=== PATIENT | female | born 1970 | race Caucasian/White ===

== ENCOUNTER → 2022-07-20 13:53 | Outpatient (CLI) | payer BC, SELFPAY ==
--- NOTE | 2022-07-20 13:58 | CT_ITS ---
FINAL REPORT CLINICAL HISTORY: lung cancer screening. smoker, 1 ppd x 35 years. family hx of lung cancer FINDINGS: Axial images were obtained from the lung apex to the mid abdomen by computed tomography. Low-dose protocol was utilized. CTDl vol(mGy): 2.90 DLP (mGy-cm): 100.29 FINDINGS: There is no axillary adenopathy. There is no hilar or mediastinal adenopathy. The heart size is normal. There is no pericardial or pleural effusion. Limited images of the upper abdomen are unremarkable. Lung window images demonstrate no suspicious infiltrate or nodule. IMPRESSION: No suspicious pulmonary mass or nodule. Lung RADS category 1. Recommend 12 month follow-up low-dose chest CT. Reviewed, Interpreted and Dictated by Adela Sevilla MD Transcribed by Saba Pickard Authenticated and [facility]
[2022-07-20 16:16] VITALS: PULSE 76; PULSE 80
== END ==
PROVIDERS: PCP Family Medicine; Visit Provider Internal Medicine Pulmonary Disease
DX: Z87.891 Personal history of nicotine dependence (principal); Z12.2 Encounter for screening for malignant neoplasm of respiratory organs; R06.02 Shortness of breath
CPT/HCPCS: 71271; 94060; 94618; 94640; 94727; 94729

== ENCOUNTER 2023-08-16 13:03 | Outpatient (CLI) | payer BC, SELFPAY ==
[2023-08-16 13:35] VITALS: PULSE 82
[2023-08-16] MEDS: ALBUTEROL 0.083% 2.5 MG/3 ML NEB IH (13:35)
--- NOTE | 2023-08-16 13:57 | CT_ITS ---
FINAL REPORT TECHNIQUE: Axial images were obtained from the lung apex to the mid abdomen by computed tomography. Coronal reformatted images were obtained. Supine inspiration and expiration and prone inspiration hi-resolution images were obtained and reviewed. This study was performed with techniques to keep radiation doses as low as reasonably achievable, (ALARA). Individualized dose reduction techniques using automated exposure control or adjustment of mA and/or kV according to the patient''s size were employed. CLINICAL HISTORY: Shortness of breath COMPARISON: CT low-dose 07/20/2022 FINDINGS: No mediastinal mass or adenopathy is identified. No axillary mass or adenopathy is seen.There is no pericardial or pleural effusion. Mild scarring is noted at the lung bases. There is no evidence of bronchiectasis or emphysema. There is no evidence of interstitial lung disease. No evidence of air trapping is seen. No pulmonary mass or suspicious nodule is identified. No localized pulmonary inflammatory process is noted. The chest wall is intact.Limited images of the upper abdomen are unremarkable. IMPRESSION: Mild scarring in the lung bases, otherwise unremarkable exam. Reviewed, Interpreted and Dictated by Heladio Pearson III, MD Transcribed by Gardenia Lewis Authenticated and [facility]
== END 2023-08-16 23:59 | disposition home or self-care (01) ==
LOC: RT 13:04
PROVIDERS: PCP Family Medicine; Visit Provider Internal Medicine Pulmonary Disease
DX: J84.9 Interstitial pulmonary disease, unspecified (principal); R06.09 Other forms of dyspnea; F17.200 Nicotine dependence, unspecified, uncomplicated
CPT/HCPCS: 71250; 94060; 94640; 94726; 94729; J7613

== ENCOUNTER 2023-08-29 14:16 | Outpatient (CLI) | payer BC, SELFPAY ==
[2023-08-29 14:59] LABS: Basophils # 0.1 K/mm3 (0-0.2); Basophils % 0.7 % (0.1-2.0); Eosinophils # 0.3 K/mm3 (0.0-0.4); Eosinophils % 2.5 % (0.1-12.0); Hematocrit 45.1 % (37.0-47.0); Lymphocytes # 2.3 K/mm3 (0.7-4.5); Lymphocytes % 20.6 % (10-50); Mean Corpuscular HGB Conc 33.2 g/dL (31.8-35.4); Mean Corpuscular Hemoglobin 29.3 pg (27.0-31.2); Mean Corpuscular Volume 88.3 fl (81-99); Monocytes # 0.5 K/mm3 (0.1-1.0); Monocytes % 4.7 % (1.7-9.3); Neutrophils # 7.9 K/mm3 (1.8-7.8); Neutrophils % 71.5 % (37.0-80.0); Platelet Count 381 K/mm3 (142-424); Red Blood Count 5.11 M/mm3 (4.20-5.40); Red Cell Distribution Width 15.4 % (11.5-17.5)
[2023-08-29 15:26] LABS: Uric Acid 6.6 mg/dl (2.5-6.2)
[2023-08-29 17:18] LABS: Erythrocyte Sedimentation Rate 12 mm/hr (0-30)
[2023-08-31 13:47] LABS: RA Latex Turbid. <10.0 IU/mL (<14.0)
[2023-08-31 16:18] LABS: Antinuclear Antibodies, IFA Negative (.)
[2023-09-04 08:39] LABS: D001-IgE D pteronyssinus 0.64 kU/L (Class II); D002-IgE D farinae 0.78 kU/L (Class II); E001-IgE Cat Dander 0.32 kU/L (Class I); E005-IgE Dog Dander <0.10 kU/L (Class 0); E072-IgE Mouse Urine <0.10 kU/L (Class 0); G002-IgE Bermuda Grass <0.10 kU/L (Class 0); G006-IgE Timothy Grass <0.10 kU/L (Class 0); I006-IgE Cockroach, German 2.71 kU/L (Class III); Immunoglobulin E, Total 574 IU/mL (6-495); M001-IgE Penicillium chrysogen <0.10 kU/L (Class 0); M002-IgE Cladosporium herbarum <0.10 kU/L (Class 0); M003-IgE Aspergillus fumigatus <0.10 kU/L (Class 0); M006-IgE Alternaria alternata <0.10 kU/L (Class 0); T001-IgE Maple/Box Elder <0.10 kU/L (Class 0); T003-IgE Common Silver Birch <0.10 kU/L (Class 0); T006-IgE Cedar, Mountain <0.10 kU/L (Class 0); T007-IgE Oak, White <0.10 kU/L (Class 0); T008-IgE Elm, American <0.10 kU/L (Class 0); T010-IgE Walnut <0.10 kU/L (Class 0); T011-IgE Maple Leaf Sycamore <0.10 kU/L (Class 0); T014-IgE Cottonwood <0.10 kU/L (Class 0); T015-IgE Ash, White <0.10 kU/L (Class 0); T022-IgE Pecan, Hickory <0.10 kU/L (Class 0); T070-IgE White Mulberry <0.10 kU/L (Class 0); W001-IgE Ragweed, Short <0.10 kU/L (Class 0); W011-IgE Thistle, Russian <0.10 kU/L (Class 0); W014-IgE Pigweed, Common <0.10 kU/L (Class 0); W018-IgE Sheep Sorrel <0.10 kU/L (Class 0)
[2023-10-02 15:03] LABS: Antinuclear Antibodies (ANA) Negative
== END 2023-08-29 23:59 | disposition home or self-care (01) ==
LOC: LAB 14:17
PROVIDERS: PCP Family Medicine; Visit Provider Internal Medicine Pulmonary Disease
DX: J30.9 Allergic rhinitis, unspecified (principal); J84.9 Interstitial pulmonary disease, unspecified; Z72.0 Tobacco use
CPT/HCPCS: 36415; 82785; 84550; 85025; 85651; 86003; 86038; 86225; 86235; 86431

== ENCOUNTER 2024-09-04 09:52 | Outpatient (CLI) | payer OTHER, SELFPAY ==
--- OUTSIDE RECORDS SUMMARY | 2024-08-28 10:30 | XMS_ITS | Encounter Summary ---
Author Organization [employer] ([place], [place], [place], [place]) Address [address] [place] [address] Care Team Providers Care Package Line Relief Operator Name Role Phone Rosalie Alva PA-C Primary Care Provider [phone] Rosalie Alva PA-C Unavailable [phone] Robyn Mario MD Unavailable [phone] Reason for Visit * Reason Comments Numbness Abnormal Imaging Result * Consultation (Routine) - Closed Specialty Diagnoses / Procedures Referred By Bennie beltrán Referred To Contact Neurology Diagnoses Abnormal MRI, cervical spine Paresthesia of upper and lower extremity Numbness and tingling History of carpal tunnel release New pt-BUE/BLE Paresthesia, Abnormal MRI of Cervical Spine, and a Hx of CTS Rosalie Alva PA-C [address] [place] [address] Phone: tel: fax: [facility] - [place] [address] [facility] [address] [place] [address] Phone: tel: fax: Referral ID Status Reason Start Date Expiration Date Visits Re quested Visits Authorized [id number] Closed 06/18/2024 06/18/2025 1 1 Encounter Details Date Type Department Care Team (Late st Contact Info) Description 08/28/2024 10:30 AM EDT Office Visit [facility] Neurology - [facility] [address] [place] [address] Rosalie Alva PA-C [address] [place] [address] Robyn Mario MD [address] [place] [address] Numbness and tingling of upper and lower extremities of both sides (Primary Dx); Unsteadiness on feet; Diabetic polyneuropathy associated with type 2 diabetes mellitus (HCC); Bilateral carpal tunnel syndrome; At risk for falls; Degenerative lumbar spinal stenosis; Restless legs syndrome Social History Tobacco Use Types Packs/Day Years Used Date Smoking Tobacco: Some Days Cigarettes Smokeless Tobacco: Former Tobacco Cessation:Ready to Q uit: Not Asked; Counseling Given: Not Answered Comments Unknown Sex and Gender Information Value Date Recorded Sex Assigned at Not on file Legal Sex Female 7:16 PM CDT Gender Identity Not on file Sexual Orientation Not on file documented as of this encounter Last Filed Vital Signs Vital Sign Reading Time Taken Comments Blood Pressure 160/87 08/28/2024 10:41 AM EDT Pulse 71 08/28/2024 10:41 AM EDT Temperature - - Respiratory Rate - - Oxygen Saturation - - Inhaled Oxygen Concentration - - Weight 129.7 kg (286 lb) 08/28/2024 10:41 AM EDT Height 167.6 cm (5' 6 ) 08/28/2024 10:41 AM EDT Body Mass Index 46.16 08/28/2024 10:41 AM EDT documented in this encounter Progress Notes * Robyn Mario MD - 08/28/2024 10:30 AM EDT Subjective Gracie Cordova is a 54 y.o. female Chief Complaint Patient presents with Numbness Abnormal Imaging Result HPI She is a nondiabetic. For the past couple of years she has been noticing that she is having increasing numbness in her feet and distal legs. She is getting unsteady on her feet. She was evaluated for her back and was found to have degenerative disc and facet joint disease at L4-5 and L5-S1 for which she has seen orthopedic surgery and had declined any surgical intervention. She may have leg twitches before she falls asleep. She has also been noting numbness in her hands and her doctor had requested MRI cervical spine which showed some degenerative changes as well as NCV/EMG which showed moderately severe bilateral carpal tunnel syndrome.She may drop things from her hands. Numbness in her hands wake her up from sleep at times. I have reviewed and/or updated the following: Tobacco Allergies Meds Problems Med Hx Surg Hx Fam Hx Review of Systems Eyes: Positive for photophobia and visual disturbance. Gastrointestinal: Positive for constipation, diarrhea, nausea and vomiting. Musculoskeletal: Positive for back pain and myalgias. Psychiatric/Behavioral: The patient is nervous/anxious. All other systems reviewed and are negative. Objective BP (!) 160/87 (BP Location: Right wrist, Patient Position: Sitting, Cuff Size: Adult) Pulse 71 Ht 1.676 m (5' 6 ) Wt 129.7 kg (286 lb) BMI 46.16 kg/m?? Physical Exam Vitals and nursing note reviewed. Constitutional: General: She is not in acute distress. Appearance: She is obese. HENT: Head: Normocephalic and atraumatic. Mouth/Throat: Mouth: Mucous membranes are moist. Pharynx: Oropharynx is clear. Eyes: General: Lids are normal. Extraocular Movements: Extraocular movements intact. Conjunctiva/sclera: Conjunctivae normal. Pupils: Pupils are equal, round, and reactive to light. Cardiovascular: Rate and Rhythm: Normal rate and regular rhythm. Pulses: Normal pulses. Heart sounds: Normal heart sounds. Pulmonary: Effort: Pulmonary effort is normal. Breath sounds: Normal breath sounds. Abdominal: General: Bowel sounds are normal. Palpations: Abdomen is soft. Musculoskeletal: General: No swelling. Normal range of motion. Cervical back: Normal range of motion and neck supple. Skin: General: Skin is warm and dry. Findings: No rash. Neurological: Coordination: Romberg sign positive. Deep Tendon Reflexes: Reflex Scores: Tricep reflexes are 1+ on the right side and 1+ on the left side. Bicep reflexes are 1+ on the right side and 1+ on the left side. Brachioradialis reflexes are 1+ on the right side and 1+ on the left side. Patellar reflexes are 0 on the right side and 0 on the left side. Achilles reflexes are 0 on the right side and 0 on the left side. Psychiatric: Mood and Affect: Mood normal. Speech: Speech normal. Behavior: Behavior normal. Neurological Exam Mental Status Awake, alert and oriented to person, place and time. Speech is normal. Cranial Nerves CN II: Visual carroll full to confrontation. CN III, IV, : Extraocular movements intact bilaterally. Normal lids and orbits bilaterally. Pupils equal round and reactive to light bilaterally. CN V: Facial sensation is normal. CN VII: Full and symmetric facial movement. CN VIII: Hearing is normal. CN IX, X: Palate elevates symmetrically CN XI: Shoulder shrug strength is normal. CN XII: Tongue midline without atrophy or fasciculations. Motor Normal muscle bulk throughout. No fasciculations present. Normal muscle tone. No abnormal involuntary movements. Strength is 5/5 in all four extremities except as noted. Sensory Light touch abnormality: Pinprick abnormality: Vibration abnormality: Proprioception abnormality: Decreased touch and pinprick in distal legs Decreased vibration and proprioception up to mid feet. Reflexes Right Left Brachioradialis 1+ 1+ Biceps 1+ 1+ Triceps 1+ 1+ Patellar 0 0 Achilles 0 0 Right Plantar: downgoing Left Plantar: downgoing Tinel's test positive on bilateral wrists. Coordination Right: [id number] normal.Left: [id number] normal. Gait Casual gait: Ataxic and antalgic gait. Tandem gait abnormality: Romberg is present. Data: No visits with results within 1 Month(s) from this visit. Latest known visit with results is: No results found for any previous visit. Imaging: MRI of the cervica spine without contrastl 05/27/2024: It showed multilevel degenerative disc disease as well as disc osteophyte complexes foraminal. Incidentally there were increased T2 signals within the [place] consistent with nonspecific microangiopathy. MRI of the lumbar spine without contrast 03/13/2024: Multilevel degenerative changes, especially there is a disc osteophyte complex in the L4-5 level as well as 5 S1 with associated severe left-sided canal stenosis and moderate to severe foraminal narrowing with disc osteophyte formation extending into the foramina. (MRIs were reviewed from the discs provided). NCV EMG 05/13/2024: This study was for bilateral upper extremities and was abnormal. The findings were consistent with electrodiagnostic evidence of nerve entrapment at the wrists bilaterally. EMG didnot show any denervation or myopathy. Assessment: Diagnoses and all orders for this visit: Numbness and tingling of upper and lower extremities of both sides Unsteadiness on feet Diabetic polyneuropathy associated with type 2 diabetes mellitus (HCC) Bilateral carpal tunnel syndrome At risk for falls Degenerative lumbar spinal stenosis Restless legs syndrome Her symptoms are neuropathic from diabetic polyneuropathy. Her back pain may be related with her degenerative lumbar stenosis but she has already been evaluated by the [facility] and refused surgery. She says physical therapy had been not helped in the past. Plan: Will get EMG for her lower extremities to characterize her polyneuropathy Wrist splints Fall prevention. Need to use walking cane and she has shower seat.she is advised to keep the hallways with when she has to get up in the dark. She is already taking gabapentin 800 mg 4 tablets a day supplemented with tramadol. She can continue. For her back pain she has been advised to consider shots and/or surgery by spine surgery. She continues to refuse. Return in about 3 months (around 11/28/2024) for Recheck. documented in this encounter Plan of Treatment Upcoming Encounters Date Type Department Care Team (Late st Contact Info) Description 11/25/2024 9:00 AM EDT Procedure Visit [facility] - [facility] [address] [place] [phone] Robyn Mario MD [address] [place] [address] 11/25/2024 11:45 AM EDT Office Visit [facility] [address] [place] [phone] Robyn Mario MD [address] [place] [id number] Scheduled Orders Name Type Priority Associated Diagnoses Orde r Schedule EMG W/ NCS Neurology Routine Numbness and tingling of upper and lower extremities of both sides Diabetic polyneuropathy associated with type 2 diabetes mellitus (HCC) Expected: 09/04/2024, Expires: 08/28/2025 documented as of this encounter Visit Diagnoses Diagnosis Numbness and tingling of upper and lower extremities of both sides- Primary Unsteadiness on feet Diabetic polyneuropathy associated with type 2 diabetes mellitus (HCC) Bilateral carpal tunnel syndrome Carpal tunnel syndrome At risk for falls Personal history of fall Degenerative lumbar spinal stenosis Spinal stenosis of lumbar region Restless legs syndrome Restless legs syndrome (RLS) documented in this encounter Care Teams Package Line Relief Operator Relationship Specialty Start Date End Date Rosalie Alva PA-C [address] [place] [address] PCP - General Physician Filing Clerk - Certified 06/18/24 Rosalie Alva PA-C [address] [place] [address] Referring Physician Physician Filing Clerk - Certified 06/18/24 Robyn Mario MD [address] [facility] [facility] [address] [facility] [address] [place] [phone] Neurology 08/28/24 documented as of this encounter
--- OUTSIDE RECORDS SUMMARY | 2024-09-04 09:56 | XMS_ITS | Data Portability ---
Author Organization [facility], [facility] Address [address] [place] [address] Assessment Encounter Date Assessment Date Assessment LastModified by Organization Details LastModified Time 05/11/2018 05/11/2018 48-year-old female with history of low back pain present for about 10 years. patient reports was her pain is in her low back and does not refer radiate affairs. She does report bilateral burning and tingling in her feet and nondermatomal fashion which may be a peripheral neuropathy. She has been taking gabapentin for that which has not provided significant relief. She has taken NSAIDs and muscle relaxants and neuropathic medications without significant relief this time. She denies previous injections or surgery in her low back. On examination: increased pain with extension and lateral side bending facet loading. Tenderness over paraspinal tissues. Previous records from other providers imaging Romeo, and if applicable UDS were reviewed.ORT score was reviewed and patient advised of mental health resources available, if requested. Imaging report shows: MRI of the lumbar spine shows degenerative changes most significant at L4/5 and L5/S1 where there bulges causing central canal stenosis. There is abutment of the left descending S1 nerve root left L5/S1. There is hypertrophy and facet disease consistent with lumbar spondylosis. This is present throughout most of the lumbar spine. UDS: UDS is positive for THC and TCAs. We will send this off for confirmation to help establish a pattern ofcompliance. Plan: at this time will sufficient for bilateral L2-5 medial branch blocks. If this is successfully can repeat and consider RFA [place] in the future. Based on patient's presentation I do not believe she'll be a little participate in physical therapy at this time. I do believe this may be a beneficial modality in the future if patient is able to obtain some relief from medial branch blocks or RFA. We will also set patient up with Aleppo 5/325 mg #10 pills to help with exacerbations of her pain for the next 30 days. Advised patient not to take his medication every day and to use half doses as tolerated to decrease the chances of tolerance and dependence. Patient reports that they understand this and will use the medication as sparingly as possible. [email or web address] Not available 05/11/2018 17:03:54 07/05/2024 07/05/2024 Pain History: This is a 54-year-old with chronic low back and leg pain She has chronic low back and leg pain, pain radiates down both legs to the feet. Denies incontinence or myelopathy. No prior back surgery. Evaluated by [facility] who did not recommend surgical intervention due to BMI. Primary complaint is low back pain that is worse when she bends forward. Secondary complaint is pain rating down both legs to the feet. No prior injection therapy. She is somewhat averse to injections due to anxiety. Currently using tramadol and gabapentin for pain control. Past Medical History: Fibromyalgia, metabolic syndrome, GERD, hypertension, diabetes Imaging: MRI lumbar spine personally reviewed today, [place] [facility], images uploaded in DICOM folder 02/2024 Modic 2 endplate change L4-S1 T10-11: Mild canal narrowing with disc extrusion T11-12 WNL T12-L1 WNL L1-L2 facet disease, no stenosis L2-L3 facet disease without stenosis L3-L4 disc bulge, moderate foraminal and canal narrowing L4-L5 disc osteophyte complex with extrusion, severe left-sided canal stenosis, moderate to severe foraminal narrowing L5-S1 disc osteophyte complex, grade 1 retrolisthesis, disc osteophyte contacting left S1 nerve Surgical evaluation/ history: Referred by Dr. Elizalde's office, no prior back surgery Conservative Treatments: Physical therapy in the past without benefit for low back pain, currently completing HEP from her orthopedic surgeon office which has not benefited her low back and leg pain Interventional treatment history: None Previous analgesics: Opioids Current analgesics: Tramadol gabapentin Compliance Monitoring: No UDS today Overall high risk ORT, JOSEFINA reviewed Anticoagulant/An tiplatelet Medications: None [email or web address] Not available 07/05/2024 14:57:18 Plan of Treatment Reminders Order Date Submit Date Provider Last Modified By Organization Details Last Modified Time Details Appointments None recorded. Lab drug confirmati on, urine 2018 [facility], [facility], [address] [place] [address], [place], [address], 9 17:15:40 drug screen, urine 2018 [facility], [facility] [address], [place], [address], 9 22:05:36 Referral None recorded. Procedures remote therapeuti c monitoring to monitor musculoske letal system (PROC) 2024 025 [email or web address] Not available 14:58:14 epidural steroid injection, lumbar interlamin ar (PROC) - Max David L4/5 2024 [email or web address] Not available 13:38:49 medial branch block, lumbar (PROC) 2018 [email or web address] Not available 11:35:11 Surgeries None recorded. Imaging None recorded. Medication Orders tolmetin 600 mg tablet 2024 [facility], [address], [place], [place], [id number], 15:11:25 baclofen 10 mg tablet 2024 025 [id number], [address], [id number], 14:58:31 Aleppo 5 mg-325 mg tablet 2018 019 [id number], [address] [place], [address], 9 22:05:38 Patient TargetsNo targets recorded. Patient Instructions Encounter Date Encounter Id Patient Instructions Last Modified By Organization Details Last Modified Time 05/11/2018 [id number] Opioid Risk Tool (ORT)* SVITLANA Not available 05/14/2018 07:31:19 07/05/2024 [id number] behavioral healt h screen* [email or web address] Not available 07/26/2024 07:32:26 Reason for Referral None Reported. Results Created Date Observation Date Name Description Value Unit Range Abnormal Flag Note LastModifiedBy Organization Detail LastModifiedTime 05/12/19 19 05/11/2018 drug scree n, urine THC: positi ve Not Available [place] [address], [place], [address], 05/11/2018 17:04:39 05/12/1905/11/2018 drug scree n, urine Buprenorphin e: negati ve Not Available [place] [address], [place], [address], 05/11/2018 17:04:39 05/12/1905/11/2018 drug scree n, urine TCA: positi ve Not Available [place] [address], [place], [address], 05/11/2018 17:04:39 05/12/1905/11/2018 drug scree n, urine Barbiturates : negati ve Not Available [place] [address], [place], [address], 05/11/2018 17:04:39 05/12/1905/11/2018 drug scree n, urine Benzodiazepi mauri: negati ve Not Available [place] [address], [place], [address], 05/11/2018 17:04:39 05/12/1905/11/2018 drug scree n, urine Methadone: negati ve Not Available [place] [address], [place], [address], 05/11/2018 17:04:39 05/12/1905/11/2018 drug scree n, urine Amphetamines : negati ve Not Available [place] [address], [place], [address], 05/11/2018 17:04:39 05/12/19 19 05/11/2018 drug scree n, urine Morphine/Opi ates: negati ve Not Available [place] [address], [place], [address], 05/11/2018 17:04:39 05/12/19 19 05/11/2018 drug scree n, urine Oxycodone: negati ve Not Available [place] [address], [place], [address], 05/11/2018 17:04:39 05/12/19 19 05/11/2018 drug scree n, urine MDMA: negati ve Not Available [address], [place], [address], 05/11/2018 17:04:39 05/12/19 19 05/11/2018 drug scree n, urine Cocaine: negati ve Not Available [place] [address], [place], [address], 05/11/2018 17:04:39 05/12/19 19 05/11/2018 drug scree n, urine Methamphetam ine: negati ve Not Available [place] [address], [place], [address], 05/11/2018 17:04:39 05/22/19 19 05/21/2018 drug confi rmati on, urine abnormal status abnormal Not Available [facility], [address], [address], 05/28/2018 17:15:44 05/22/19 19 05/21/2018 speci men valid ity testi ng urine creatinine 212 mg/dL 44-355 normal Presc ribed Medic ation s: [place] codon e (Hydr ocodo ne), Gabap entin (Vika penti n), Doxep in (Doxe pin) Not Available [facility], [address], [address], 05/28/2018 17:15:44 05/22/19 19 05/21/2018 ssri citalopram Not Detect ed NG/mL 75 normal Not Available [facility], [address], [address], 05/28/2018 17:15:43 05/22/19 19 05/21/2018 ssri N-desmethylc italopram Not Detect ed NG/mL 75 normal Not Available [facility], [address], [address], 05/28/2018 17:15:43 05/22/19 19 05/21/2018 ssri fluoxetine Not Detect ed NG/mL 75 normal Not Available [facility], [address], [address], 05/28/2018 17:15:43 05/22/19 19 05/21/2018 ssri norfluoxetin e Not Detect ed NG/mL 75 normal Not Available [facility], [address], [address], 05/28/2018 17:15:43 05/22/19 19 05/21/2018 ssri paroxetine Not Detect ed NG/mL 75 normal Not Available [facility], [address], [address], 05/28/2018 17:15:43 05/22/19 19 05/21/2018 ssri sertraline Not Detect ed NG/mL 75 normal Presc ribed Medic ation s: [place] codon e (Hydr ocodo ne), Gabap entin (Vika penti n), Doxep in (Doxe pin) Not Available [facility], [address], [address], 05/28/2018 17:15:43 05/22/19 19 05/21/2018 amphe tamin es D/L - amphetamine Not Detect ed NG/mL 75 normal Not Available [facility], [address], [address], 05/28/2018 17:15:43 05/22/19 19 05/21/2018 amphe tamin es D/L - methamphetam ine Not Detect ed NG/mL 75 normal Not Available [facility], [address], [address], 05/28/2018 17:15:43 05/22/19 19 05/21/2018 amphe tamin es ritalinic acid Not Detect ed NG/mL 75 normal Presc ribed Medic ation s: [place] codon e (Hydr ocodo ne), Gabap entin (Vika penti n), Doxep in (Doxe pin) Not Available [facility], [address], [address], 05/28/2018 17:15:43 05/22/19 19 05/21/2018 klever turat es butalbital Not Detect ed NG/mL 150 normal Not Available [facility], [address], [address], 05/28/2018 17:15:42 05/22/19 19 05/21/2018 klever turat es phenobarbita l Not Detect ed NG/mL 150 normal Presc ribed Medic ation s: [place] codon e (Hydr ocodo ne), Gabap entin (Vika penti n), Doxep in (Doxe pin) Not Available [facility], [address], [address], 05/28/2018 17:15:42 05/22/19 19 05/21/2018 thera peuti c drugs carisoprodol -soma Not Detect ed NG/mL 75 normal Not Available [facility], [address], [address], 05/28/2018 17:15:42 05/22/19 19 05/21/2018 thera peuti c drugs meprobamate Not Detect ed NG/mL 75 normal Presc ribed Medic ation s: [place] codon e (Hydr ocodo ne), Gabap entin (Vika penti n), Doxep in (Doxe pin) Not Available [facility], [address], [address], 05/28/2018 17:15:42 05/22/19 19 05/21/2018 benzo diaze pines 7-aminoclona zepam Not Detect ed NG/mL 60 normal Not Available [facility], [address], [address], 05/28/2018 17:15:42 05/22/19 19 05/21/2018 benzo diaze pines alprazolam Not Detect ed NG/mL 60 normal Not Available [facility], [address], [address], 05/28/2018 17:15:42 05/22/19 19 05/21/2018 benzo diaze pines alpha-hydrox yalprazolam Not Detect ed NG/mL 60 normal Not Available [facility], [address], [address], 05/28/2018 17:15:42 05/22/19 19 05/21/2018 benzo diaze pines lorazepam Not Detect ed NG/mL 60 normal Not Available [facility], [address], [address], 05/28/2018 17:15:42 05/22/19 19 05/21/2018 benzo diaze pines nordiazepam Not Detect ed NG/mL 60 normal Not Available [facility], [address], [address], 05/28/2018 17:15:42 05/22/19 19 05/21/2018 benzo diaze pines oxazepam Not Detect ed NG/mL 60 normal Not Available [facility], [address], [address], 05/28/2018 17:15:42 05/22/19 19 05/21/2018 benzo diaze pines temazepam Not Detect ed NG/mL 60 normal Pres ribed Medic ation s: [place] codon e (Hydr ocodo ne), Gabap entin (Vika penti n), Doxep in (Doxe pin) Not Available [facility], [address], [address], 05/28/2018 17:15:42 05/22/19 19 05/21/2018 vika analo gs gabapentin 2794 POSITI VE NG/mL 225 normal Not Available [facility], [address], [address], 05/28/2018 17:15:41 05/22/19 19 05/21/2018 vika analo gs pregabalin Not Detect ed NG/mL 225 normal Not Available [facility], [address], [address], 05/28/2018 17:15:41 05/22/19 19 05/21/2018 vika analo gs zaleplon Not Detect ed NG/mL 7.5 normal Not Available [facility], [address], [address], 05/28/2018 17:15:41 05/22/1905/21/2018 vika analo gs zolpidem Not Detect ed NG/mL 75 normal Pres ribed Medic ation s: [place] codon e (Hydr ocodo ne), Gabap entin (Vika penti n), Doxep in (Doxe pin) Not Available [facility], [address], [address], 05/28/2018 17:15:41 05/22/19 19 05/21/[address] antag buprenorphin e Not Detect ed NG/mL 7.5 normal Not Available [facility], [address], [address], 05/28/2018 17:15:41 05/22/19 19 05/21/2018 opiat e agoni ant norbuprenorp doyle Not Detect ed NG/mL 37.5 normal Not Available [facility], [address], [address], 05/28/2018 17:15:41 05/22/19 19 05/21/2018 [facility]iat e [facility] nalox[facility] Not Detect ed NG/mL 75 normal Not Available [facility], [address], [address], 05/28/2018 17:15:41 05/22/19 19 05/21/2018 opiat e [facility] pentazocine Not Detect ed NG/mL 22.5 normal Presc ribed Medic ation s: [place] codon e (Hydr ocodo ne), Gabap entin (Vika penti n), Doxep in (Doxe pin) Not Available [facility], [address], [address], 05/28/2018 17:15:41 05/22/19 19 05/21/2018 opiat es/op ioids codeine Not Detect ed NG/mL 75 normal Not Available [facility], [address], [address], 05/28/2018 17:15:40 05/22/19 19 05/21/2018 opiat es/op ioids fentanyl Not Detect ed NG/mL 6 normal Not Available [facility], [address], [address], 05/28/2018 17:15:40 05/22/19 19 05/21/2018 opiat es/op ioids norfentanyl Not Detect ed NG/mL 6 normal Not Available [facility], [address], [address], 05/28/2018 17:15:40 05/22/19 19 05/21/2018 opiat es/op ioids morphine Not Detect ed NG/mL 75 normal Not Available [facility], [address], [address], 05/28/2018 17:15:40 05/22/19 19 05/21/2018 opiat es/op ioids hydrocodone Not Detect ed NG/mL 75 abnormal Not Available [facility], [address], [address], 05/28/2018 17:15:40 05/22/19 19 05/21/2018 opiat es/op ioids norhydrocodo ne Not Detect ed NG/mL 75 abnormal Not Available [facility], [address], [address], 05/28/2018 17:15:40 05/22/19 19 05/21/2018 opiat es/op ioids hydromorphon e Not Detect ed NG/mL 75 abnormal Not Available [facility], [address], [address], 05/28/2018 17:15:40 05/22/19 19 05/21/2018 opiat es/op ioids oxycodone Not Detect ed NG/mL 37.5 normal Not Available [facility], [address], [address], 05/28/2018 17:15:40 05/22/19 19 05/21/2018 opiat es/op ioids noroxycodone Not Detect ed NG/mL 37.5 normal Not Available [facility], [address], [address], 05/28/2018 17:15:40 05/22/19 19 05/21/2018 opiat es/op ioids oxymorphone Not Detect ed NG/mL 75 normal Not Available [facility], [address], [address], 05/28/2018 17:15:40 05/22/19 19 05/21/2018 opiat es/op ioids meperidine Not Detect ed NG/mL 37.5 normal Not Available [facility], [address], [address], 05/28/2018 17:15:40 05/22/19 19 05/21/2018 opiat es/op ioids normeperidin e Not Detect ed NG/mL 37.5 normal Not Available [facility], [address], [address], 05/28/2018 17:15:40 05/22/19 19 05/21/2018 opiat es/op ioids methadone Not Detect ed NG/mL 75 normal Not Available [facility], [address], [address], 05/28/2018 17:15:40 05/22/19 19 05/21/2018 opiat es/op ioids methadone (EDDP) Not Detect ed NG/mL 75 normal Not Available [facility], [address], [address], 05/28/2018 17:15:40 05/22/19 19 05/21/2018 opiat es/op ioids propoxyphene Not Detect ed NG/mL 75 normal Not Available [facility], [address], [address], 05/28/2018 17:15:40 05/22/19 19 05/21/2018 opiat es/op ioids norpropoxyph porfirio Not Detect ed NG/mL 75 normal Not Available [facility], [address], [address], 05/28/2018 17:15:40 05/22/19 19 05/21/2018 opiat es/op ioids tapentadol Not Detect ed NG/mL 37.5 normal Not Available [facility], [address], [address], 05/28/2018 17:15:40 05/22/19 19 05/21/2018 opiat es/op ioids tramadol Not Detect ed NG/mL 75 normal Not Available [facility], [address], [address], 05/28/2018 17:15:40 05/22/19 19 05/21/2018 opiat es/op ioids B-bpf-agmnxu -cis-tramado l Not Detect ed NG/mL 75 normal Presc ribed Medic ation s: [place] codon e (Hydr ocodo ne), Gabap entin (Vika penti n), Doxep in (Doxe pin) Not Available [facility], [address], [address], 05/28/2018 17:15:40 05/22/19 19 05/21/2018 drug confi rmati on, urine comment: See Compon ents normal Presc ribed Medic ation s: [place] codon e (Hydr ocodo ne), Gabap entin (Vika penti n), Doxep in (Doxe pin) Not Available [facility], [address], [address], 05/28/2018 17:15:40 Result Notes None recorded. Problems Name Problem SNOMED Code Status Onset Date Resolution Date Notes Provider Name and Address Organization Details Recorded Time Fibromyalgia 038559607 Active 2018 DEDE Garcia - [facility] 9 16:27:24 Low back pain 690259214 Active 2018 DEDE Garcia - [facility] 9 16:29:05 Chronic pain 57239150 Active 2024 britta delvalle null, [facility] 11:37:41 Lumbar radiculopathy 692983150 Active 2024 britta alberts [facility] 5 11:37:41 Lumbar spondylosis 418105297 Active 2024 britta alberts [facility] 11:37:41 Vertebrogenic low back pain Active 2024 GISEL KESSLER MD [address] [place] [address], [address] [facility] 14:57:51 Problem Notes None recorded. Procedures Surgical History Date Name Laterality Status Provider Name and Address Organization Details Recorded Time Carpal Tunnel Release completed britta delvalle [facility] 07/05/2024 11:40:36 Carpal tunnel surgery completed Deebeto Gonzales [facility] 05/11/2018 16:27:59 Cholecystectomy completed Dee Gonzales [facility] 05/11/2018 16:28:15 Imaging Results None recorded. Procedure Notes None recorded. Medical Equipment None Reported. Allergies No known drug allergies Medications Name Sig Start Date Stop Date Status Note LastModified by Organization Details LastModified Time fluoxetin e 40 mg capsule TAKE 2 CAPSULE BY MOUTH EVERY DAY active Not Available Not Available No t Available cyclobenz aprine 10 mg tablet TAKE 1/2 TABLET BY MOUTH THREE TIMES DAILY NEEDED FOR MUSCLE SPASMS active Not Available Not Available No t Available Nicotrol NS 10 mg/mL nasal spray ADMINIST ER 1 SPRAY INTO EACH NOSTRIL 8 TIMES A DAY. DO NOT EXCEED 4 ML PER DAY 07/05 completed Not Available Not Available Not Available buspirone 5 mg tablet 07/05 completed Not Available Not Available Not Available metformin 500 mg tablet TAKE 1 TABLET BY MOUTH TWICE DAILY TO IMPROVE DIABETES active Not Available Not Available No t Available tolmetin 600 mg tablet Take 1 tablet 3 times a day by oral route for 30 days. 2024 active Not Available Not Available Not Avai lable gabapenti n 600 mg tablet 07/05 completed Not Available Not Available Not Available ipratropi um 0.5 mg-albute rol 3 mg (2.5 mg base)/3 mL nebulizat ion soln INHALE CONTENTS OF 1 VIAL VIA NEBULIZE R EVERY 4 TO 6 HOURS NEEDED FOR RESPIRAT ORY PROBLEMS active Not Available Not Available No t Available trazodone 50 mg tablet TAKE 1/2 TO 1 TABLET BY MOUTH AT BEDTIME NEEDED FOR SLEEP active Not Available Not Available No t Available azithromy catrachito 250 mg tablet TAKE 2 TABLETS BY MOUTH TODAY, THEN TAKE 1 TABLET DAILY FOR 4 DAYS DIRECTED 07/05 completed Not Available Not Available Not Available hydrocodo ne 5 mg-acetam inophen 325 mg tablet TAKE 1 TABLET BY MOUTH NEEDED FOR 30 DAYS. active HAS BEEN APPROVED , CASE # [id number] Not Available Not Available Not Available ondansetr on HCl 4 mg tablet active Not Available Not Available No t Available prednison e 20 mg tablet TAKE 3 TABLETS BY MOUTH DAILY FOR 5 DAYS 07/05 completed Not Available Not Available Not Available haloperid ol 1 mg tablet active Not Available Not Available Not Available acetamino phen 300 mg-codein e 30 mg tablet TAKE 1 TABLET BY MOUTH EVERY 6 HOURS NEEDED FOR PAIN 07/05 completed Not Available Not Available Not Available tramadol 50 mg tablet TAKE 2 TABLET BY MOUTH TWICE DAILY NEEDED FOR PAIN active Not Available Not Available No t Available famotidin e 20 mg tablet TAKE 1 TABLET BY MOUTH TWICE DAILY active Not Available Not Available No t Available metoclopr amide 5 mg tablet TAKE 1 TABLET BY MOUTH THREE TIMES DAILY BEFORE MEALS FOR 30 DAYS active Not Available Not Available No t Available gabapenti n 800 mg tablet TAKE 1 TABLET BY MOUTH FOUR TIMES DAILY active Not Available Not Available No t Available baclofen 10 mg tablet Take 1 tablet 3 times a day by oral route for 30 days. 2024 active Not Available Not Available Not Avai lable benzonata te 100 mg capsule TAKE 1 CAPSULE ORAL ROUTE EVERY 8 HOURS NEEDED active Not Available Not Available No t Available doxepin 100 mg capsule active Not Available Not Available Not Available dexametha sone 4 mg tablet TAKE 1 TABLET BY MOUTH TWICE A DAY 07/05 completed Not Available Not Available Not Available nicotine 21 mg/24 hr daily transderm al patch APPLY 1 PATCH TRANSDER [place] EVERY 24 HOURS active Not Available Not Available No t Available folic acid 1 mg tablet TAKE 1 TABLET BY MOUTH EVERY DAY active Not Available Not Available No t Available diclofena c sodium 50 mg tablet,de layed release 07/05 completed Not Available Not Available Not Available azelastin e 137 mcg (0.1 %) nasal spray SPRAY 2 SPRAYS INTO EACH NOSTRIL AT BEDTIME active Not Available Not Available No t Available lisinopri l 10 mg-hydroc hlorothia zide 12.5 mg tablet TAKE 1 TABLET BY MOUTH EVERY DAY FOR BLOOD PRESSURE active Not Available Not Available No t Available ondansetr on 4 mg disintegr ating tablet PLACE 1 TABLET ON THE TONGUE EVERY 4-6 HOURS NEEDED active Not Available Not Available No t Available fluoxetin e 20 mg capsule TAKE 3 CAPSULES BY MOUTH EVERY DAY 07/05 completed Not Available Not Available Not Available fluticaso ne propionat e 50 mcg/actua tion nasal spray,chinedu pension INSTILL 2 SPRAYS INTO EACH NOSTRIL EVERY DAY active Not Available Not Available No t Available amoxicill in 875 mg-potass ium clavulana te 125 mg tablet TAKE 1 TABLET BY MOUTH TWICE DAILY WITH FOOD FOR 1 WEEK FOR INFECTIO N 07/05 completed Not Available Not Available Not Available Ventolin HFA 90 mcg/actua tion aerosol inhaler INHALE 2 PUFFS BY MOUTH FOUR TIMES DAILY NEEDED FOR SHORTNES S OF BREATH OF WHEEZING active Not Available Not Available No t Available buspirone 15 mg tablet TAKE 1 TABLET BY MOUTH ONCE DAILY IN THE MORNING AND 2 TABLETS IN THE EVENING active Not Available Not Available No t Available hydroxyzi ne pamoate 25 mg capsule TAKE 1 CAPSULE BY MOUTH THREE TIMES A DAY NEEDED FOR ANXIETY active Not Available Not Available No t Available Spiriva with HandiHale r 18 mcg and inhalatio n capsules PUNCTURE 1 CAPSULE USING THE DEVICE AND INHALE BY MOUTH INTO THE LUNGS ONCE DAILY active Not Available Not Available No t Available duloxetin e 30 mg capsule,d elayed release 07/05 completed Not Available Not Available Not Available duloxetin e 60 mg capsule,d elayed release active Not Available Not Available Not Available Vitamin D3 50 mcg (2,000 unit) tablet TAKE 1 TABLET BY MOUTH EVERY DAY active Not Available Not Available No t Available Dulera 200 mcg-5 mcg/actua tion HFA aerosol inhaler INHALE 2 PUFFS BY MOUTH INTO THE LUNGS TWICE DAILY active Not Available Not Available No t Available SmoothLax 17 gram/dose oral powder MIX AND DRINK 17 GRAMS BY MOUTH EVERY DAY DIRECTED active Not Available Not Available No t Available Rexulti 3 mg tablet TAKE 1 TABLET BY MOUTH DAILY active Not Available Not Available No t Available Rexulti 2 mg tablet TAKE 1 TABLET BY MOUTH EVERY DAY active Not Available Not Available No t Available Ozempic 0.25 mg or 0.5 mg (2 mg/3 mL) subcutane ous pen injector ADMINIST ER 0.5 MG UNDER THE SKIN EVERY WEEK active Not Available Not Available No t Available Vitals Date Recorded Body height Body mass index (BMI) Body weight Oxygen saturation Oxygen saturation in Arterial blood by Pulse oximetry Heart rate Systolic And Diastolic Provider Name and Address Organization Details Last Updated DateTime 9 167.64 cm 51.3 kg/m2 748567. 37 g 97 % 97 % 70 /min 150/96 mm[Hg] Dee Gonzales [facility] 9 16:34:36 Date Recorded Body height Body mass index (BMI) Body weight Heart rate Oxygen saturation Oxygen saturation in Arterial blood by Pulse oximetry Systolic And Diastolic Provider Name and Address Organization Details Last Updated DateTime 5 165.1 cm 52.4 kg/m2 840657. 6 g 75 /min 97 % 97 % 132/96 mm[Hg] Carrie lopez [facility] 5 12:13:59 Date Recorded Pain severity - 0-10 verbal numeric rating [Score] - Reported Provider Name and Address Organization Details Last Updated DateTime 07/05/2024 Adam delvalle [facility] 07/05/2024 11:38:40 Social History Question Answer Notes LastModified by Organizat ion Details LastModified Time Tobacco Smoking Status Current Every Day Smoker Dee alberts [facility] 05/11/2018 16:27:32 Do You Have An Advance Directive? No [email or web address] Information not available 07/05/2024 What Is Your Level Of Caffeine Consumption? Heavy [email or web address] Information not available 07/05/2024 How Much Tobacco Do You Chew? None [email or web address] Information not available 07/05/2024 Are You Deaf Or Do You Have Serious Difficulty Hearing? No [email or web address] Information not available 07/05/2024 What Type Of Diet Are You Following? REGULAR [email or web address] Information not available 07/05/2024 Which Illicit Or Recreational Drugs Have You Used? Some Marijuana [email or web address] Information not available 07/05/2024 What Is The Highest Grade Or Level Of School You Have Completed Or The Highest Degree You Have Received? [id number] [email or web address] Information not available 07/05/2024 Hard Of Hearing Or Deaf In One Or Both Ears? No Information not available 07/05/2024 Marital Status Domestic Partner [email or web address] Information not available 07/05/2024 Do You Have A Medical Power Of Consulting Systems Engineer? No Information not available 07/05/2024 What Was The Date Of Your Most Recent Tobacco Screening? 05/11/2018 Information not available 09/05/2018 What Is Your Relationship Status? Single [email or web address] Information not available 07/05/2024 At What Age Did You Start Smoking Tobacco? 17 [email or web address] Information not available 07/05/2024 How Much Tobacco Do You Smoke? 1 PPD [email or web address] Information not available 07/05/2024 General Stress Level High [email or web address] Information not available 07/05/2024 How Many Years Have You Smoked Tobacco? 30 Information not available 07/05/2024 Do You Have Difficulty Walking Or Climbing Stairs? Yes [email or web address] Information not available 07/05/2024 Sex: Unknown Functional Status Question Answer Note LastModified by Organizat ion Details LastModified Time What is your level of alcohol consumption? None [email or web address] Information not available 05/11/2018 Are you currently employed? No [email or web address] Information not available 07/05/2024 Are you able to walk? YESWOREST [email or web address] Information not available 07/05/2024 Do you have difficulty doing errands alone? Yes [email or web address] Information not available 07/05/2024 What is your occupation? unemployed [email or web address] Information not available 05/11/2018 Do you have difficulty dressing or bathing? Yes Information not available 07/05/2024 What is your exercise level? None [email or web address] Information not available 07/05/2024 Mental Status Question Answer Note LastModified by Organization D etails LastModified Time Do you have difficulty concentrating, remembering or making decisions? Yes becky Information no t available 07/05/2024 Family History Relationship Description Onset Age of this Age Resolved Age Notes LastModified by Organization Details LastModified Time Mother Fibromyalgia mariam Not av ailable 05/11/2018 16:22:37 Medical History Condition Response Bipolar Disease N Coronary Artery Disease N Gout N Seizure Disorder N Atrial Fibrillation N Thyroid Disease N Head Trauma/Injury N Hernia N Depression N COPD N Anxiety Disorder N Acid Reflux (GERD) N Cancer N Stroke N Skin Disorder N High Cholesterol N Liver Disease N Rheumatoid Arthritis N Headaches N Fibromyalgia Y Kidney Disease N Autoimmune Disease N Osteoarthritis N Neurosurgery N DVT N Peptic Ulcer Disease N Anemia N Heart Attack ([place]) N Diabetes N Cardiomyopathy N Bleeding Disorder N CHF N AIDS/HIV N Inflammatory Bowel Disease N Dementia N Asthma N Substance Abuse N Sleep Apnea N Hepatitis N Heart Disease N Pulmonary Embolism N Chronic Low Back Pain Y Hypertension Y Osteoporosis N Gynecological HistoryNo gynecological history recorded. Obstetrics History GPAL:G 0 P 0 0 0 0 Past Encounters Encounter ID Performer Location Encounter Start Date Encounter Closed Date Diagnosis/Indication Diagnosis SNOMED-CT Code Diagnosis ICD10 Code Diagnosis Note [id number] Dharmesh Carrillo DO [address] ,[facility] [address] [place] [address] 05/11/2018 15:52:57 05/11/2018 17:04:32 Degeneration of lumbar intervertebral disc 78809067 M51.36 Lumbar spondylosis 32452 0009 M47.816 Low back pain 522425037 M54.5 Long-term drug therapy 444682933 Z79.899 ORT and PHQ-9 testing was completed electronic ally by the patient to evaluate the patient's psychosoci al health to better determine baseline risk as we consider initiating opioid medication s. The patient's ORT score of 3 indicates (low) risk potential for medication misuse. The patients PHQ-9 of 24 indicates (severe) depression . The patients PSEQ score being 14 represents the patient has (less sustainabl e gains) if opioid medication is considered . Baseline results. Will be taken into considerat ion if treatment with opioid medication is initiated in the future. Medication monitoring 39 5552278 Z79.691 [id number] GISEL KESSLER MD [place] [address] [place] [address] 07/05/2024 10:16:46 07/05/2024 12:28:12 Lumbar radiculopathy 520561809 M54.16 Presentati on consistent with lumbar radiculopa thy with superimpos ed anterior, axial back pain. Recommend baclofen, tolmetin, epidural steroid injection with sedation. She has severe anxiety and I think it would be unsafe to do this without sedation. Chronic pain 62800719 G8 9.29 Vertebroge dallin low back pain 4758858632 14093221 M54.51 She also has anterior, axial back pain with Modic endplate change. Consider Intracept when she has her weight down to 275 pounds. Health Concerns Section Related Observation LastModified by Organization Detai ls LastModified Time None Recorded Concern Status LastModified by Organization Details LastModified Time None Recorded Advance Directives Directive N: Payers Insurance Date Sequence Insurance Name Policy Number Policy Dai Covered Member ID Dai Member ID Guarantor Name 05/30/2024 1 [place] [id number] Gracie Cordova [id number] Gracie Cordova 06/25/2024 1 [facility] [facility] (MEDICAID REPLACEMENT - HMO) Gracie Cordova [id number] Gracie Cordova 08/02/2024 1 [employer] [facility] (MEDICAID HMO) Gracie Cordova [id number] Gracie Cordova Notes Date Note Type Note Provider Name and Address Organization Details Recorded Time 05/12/19 19 text/ht ml Low back painReported by PatientHPIFor associated symptoms, patient reportsnumbnessandtinglingbut reportsno weakness,no swelling,no popping/clicking,no bowel incontinence,no urinary retention,no urinary incontinence, andno perineal paresthesia/anesthesia. For location, patient reportsbuttock: __. For duration, patient reportsvaries throughout the day. For context, patient reportsstarted without cause. For quality, patient reportsaching. For pain intensity, patient reportsmoderate,current pain level: 10, andworst pain level: 11/22. For alleviating factors, patient reportsrest. For aggravating factors, patient reportsupstairsanddownstairs(phy sical activity). For prior imaging, patient reportsmri(patient has reports today). For lumbar surgery, patient reportsnone. For physical therapy, patient reportscompleted all recommended pt visits,complete more than 6 weeksweeks,dates: (2013), andresponse to therapy: no improvement in pain. For medications history, patient reportsnsaids: (diclofenac),muscle relaxants: (flexeril), andneuropathics: (gabapentin). DEDE Diaz - [facility] 05/18/2018 13:49:17 07/06/19 25 text/ht ml Low back painReported by PatientHPIFor associated symptoms, patient reportsweaknessandnumbness. 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 For onset, patient reportsdate of onset: (10 years). For location, patient reportsparaspinal: bilateralandradiating down the bilateral lower extremity to the foot. For duration, patient reportsvaries throughout the day. For context, patient reportsfallandwork injury. For quality, patient reportsaching,burning,stabbing, andworsening. For pain intensity, patient reportssevere,current pain level: 10/10,average pain level: 10/10, andworst pain level: 10/10. For alleviating factors, patient reportsnothing helps. For aggravating factors, patient reportssittingandwalking. For prior imaging, patient reportsx-ray (. lumbar)andmri (lumbar. [facility]. 03/13/24cervical. [facility]. 05/27/24). For lumbar surgery, patient reportsnone. For physical therapy, patient reportscompleted all recommended pt visits,facility: ([facility]),complete more than 6weeks,dates: (03/09/24-06/24/24),response to therapy: no improvement in pain/symptoms,currently participating in home exercise program(hep): not effective, anddate started hep: 05/14/24 days per week: 3(patient has been active in hep for low back pain for). For current analgesics, patient reportshydrocodone/apap effective,oxycodone effective, andgabapentin effective. For medications history, patient reportsopioid pain medications:. For prior pain management, patient reportsyes: (several years). GISEL KESSLER MD [address] [place] [address], [phone] 07/05/2024 14:58:19 OBGyn Episode No OBEpisode recorded.
--- OUTSIDE RECORDS SUMMARY | 2024-09-04 09:56 | XMS_ITS | Clinical Summary ---
Author Organization [employer] ([place], [place], [place], [place]) Address [address] [place] [address] Care Team Providers Care Lead Installer Name Role Phone Rosalie Alva PA-C Primary Care Provider [phone] Rosalie Alva PA-C Unavailable [phone] Robyn Mario MD Unavailable [phone] Allergies Active Allergy Reactions Criticality Noted Date Comments Codeine 08/28/2024 Medications gabapentin (NEURONTIN) 800 MG tablet Take 1 tablet (800 mg total) by mouth 4 (four) times daily. Max Daily Amount: 3,200 mg 5 Active hydrOXYzine pamoate (VISTARIL) 25 MG capsule TAKE 1 CAPSULE BY MOUTH THREE TIMES A DAY NEEDED FOR ANXIETY Active folic acid (FOLVITE) 1 MG tablet Take 1 tablet (1,000 mcg total) by mouth daily. Active famotidine (PEPCID) 20 MG tablet Take 1 tablet (20 mg total) by mouth 2 (two) times daily. Active busPIRone (BUSPAR) 15 MG tablet TAKE 1 TABLET BY MOUTH ONCE DAILY IN THE MORNING AND 2 TABLETS IN THE EVENING Active cyclobenzaprine (FLEXERIL) 10 MG tablet Take by mouth. Activ e metoclopramide (REGLAN) 5 MG tablet TAKE 1 TABLET BY MOUTH THREE TIMES DAILY BEFORE MEALS FOR 30 DAYS Active traMADoL (ULTRAM) 50 mg tablet TAKE 2 TABLET BY MOUTH TWICE DAILY NEEDED FOR PAIN 5 Active lisinopriL-hydroCH LOROthiazide (ZESTORETIC, PRINZIDE) 10-12.5 mg per tablet Take 1 tablet by mouth daily. Active FLUoxetine (PROzac) 40 MG capsule Take 2 capsules (80 mg total) by mouth daily. Active traZODone (DESYREL) 50 MG tablet Take 0.5-1 tablets (25-50 mg total) by mouth every night as needed. Active metFORMIN (GLUCOPHAGE) 500 MG tablet TAKE 1 TABLET BY MOUTH TWICE DAILY TO IMPROVE DIABETES Active Rexulti 3 mg tab tablet Take 1 tablet (3 mg total) by mouth daily. Active Ozempic 0.25 mg or 0.5 mg (2 mg/3 mL) pnij ADMINISTER 0.5 MG UNDER THE SKIN EVERY WEEK Active cane deviIndications:Nu mbness and tingling of upper and lower extremities of both sides,Diabetic polyneuropathy associated with type 2 diabetes mellitus (HCC),At risk for falls To prevent falls while ambulating. 1 each 5 Active Active Problems No known active problems Encounters Date Type Department Care Team Description 08/28/2024 10:30 AM EDT Office Visit [facility] Neurology [address] [facility] [address] [place] [address] Rosalie Alva PA-C Bukhari, Amjad, MD Numbness and tingling of upper and lower extremities of both sides (Primary Dx); Unsteadiness on feet; Diabetic polyneuropathy associated with type 2 diabetes mellitus (HCC); Bilateral carpal tunnel syndrome; At risk for falls; Degenerative lumbar spinal stenosis; Restless legs syndrome 08/28/2024 Travel 06/18/2024 Outside Orders [facility] Neurology [address] [place] [address] Rosalie Alva PA-C Abnormal MRI, cervical spine (Primary Dx); Paresthesia of upper and lower extremity; Numbness and tingling; History of carpal tunnel release from Last 3 Months Social History Tobacco Use Types Packs/Day Years Used Date Smoking Tobacco: Some Days Cigarettes Smokeless Tobacco: Former Tobacco Cessation:Ready to Q uit: Not Asked; Counseling Given: Not Answered Comments Unknown Sex and Gender Information Value Date Recorded Sex Assigned at Not on file Legal Sex Female 7:16 PM CDT Gender Identity Not on file Sexual Orientation Not on file Last Filed Vital Signs Vital Sign Reading [...] Mass Index 46.16 08/28/2024 10:41 AM EDT Plan of Treatment Upcoming Encounters Date Type Department Care Team (Late st Contact Info) Description 11/25/2024 9:00 AM EDT Procedure Visit [facility] Neurology - [facility] [address] [place] [address] Robyn Mario MD [address] [place] [address] 11/25/2024 11:45 AM EDT Office [facility] [address] [place] [address] Robyn Mario MD [address] [facility] [address] [place] [address] Health Maintenance Due Date Last Done Comments CT Colonography 1971 Colonoscopy 1971 Colorectal Cancer Screening 1971 Diabetic Kidney Health Evaluation (KED) 1971 FOBT/FIT 1971 Fit-DNA (Cologuard) 1971 Sigmoidoscopy 1971 Diabetic Eye Exam 05/02/1981 Depression Screening (12+) 1983 Tobacco Cessation Counseling and Screening (12+) 05/02 HIV Screening 05/02/1986 Hepatitis C Screening 05/02/1989 Pneumococcal 50+ years (1 of 2 - PCV) 05/02/1990 Breast Cancer Screening 2011 Lipid Panel 05/02/2016 Shingles Vaccine (Zoster) (1 of 2) 05/02/2021 COVID-19 VACCINE (2 - 2023- season) 2023 Hemoglobin A1C 08/28/2024 Influenza Vaccine (#1) 2024 Pap Smear 07/01/2025 07/01/2022 DTAP/TDAP/TD VACCINES (2 - Td or Tdap) 02/16/2028 Insurance [employer] [facility] Care Teams Lead Installer Relationship Specialty Start Date End Date Rosalie Alva PA-C [address] [place] [address] PCP - General Physician Editorial Specialist - Certified 06/18/24 Rosalie Alva PA-C [address] [place] [address] Referring Physician Physician Editorial Specialist - Certified 06/18/24 Robyn Mario MD [address] [address] Neurology 08/28/24
--- OUTSIDE RECORDS SUMMARY | 2024-09-04 09:56 | XMS_ITS | Referral Summary ---
Author Organization [employer] ([place], [place], [place], [place]) Address [address] [place] [address] Care Team Providers Care Contact Center Professional Name Role Phone Rosalie Alva PA-C Primary Care Provider [phone] Rosalie Alva PA-C Unavailable [phone] Robyn Mario MD Unavailable [phone] Encounters Date Type Department Care Team Description 08/28/2024 Travel 08/28/2024 10:30 AM EDT Office Visit [facility] Neurology [address] [place] [address] Rosalie Alva PA-C Bukhari, Amjad, MD Numbness and tingling of upper and lower extremities of both sides (Primary Dx); Unsteadiness on feet; Diabetic polyneuropathy associated with type 2 diabetes mellitus (HCC); Bilateral carpal tunnel syndrome; At risk for falls; Degenerative lumbar spinal stenosis; Restless legs syndrome 06/18/2024 Outside Orders [facility] Neurology [facility] [address] [place] [address] Rosalie Alva PA-C Abnormal MRI, cervical spine (Primary Dx); Paresthesia of upper and lower extremity; Numbness and tingling; History of carpal tunnel release from Last 3 Months Allergies Active Allergy Reactions Criticality Noted Date [...] Active Active Problems No known active problems Social History Tobacco Use Types Packs/Day Years [...] Description 11/25/2024 9:00 AM EDT Procedure Visit [facility] Neurology - [facility] [address] [place] [address] Robyn Mario MD [address] [facility] [address] [place] [address] 11/25/2024 11:45 AM EDT Office Visit [facility] Neurology - [facility] [address] [place] [address] Robyn Mario MD [address] [place] [address] Insurance [employer]NA [facility] Care Teams Contact Center Professional Relationship Specialty Start Date End Date Rosalie Alva PA-C [address] [place] [address] PCP - General Physician Passenger Service Supervisor - Certified 06/18/24 Rosalie Alva PA-C [address] [place] [address] Referring Physician Physician Passenger Service Supervisor - Certified 06/18/24 Robyn Mario MD [address] [facility] [address] [address] Neurology 08/28/24
--- OUTSIDE RECORDS SUMMARY | 2024-09-04 09:56 | XMS_ITS | Data Portability ---
Author Organization [facility] & KEVIN Ray ADMIN Address [address] [place] [id number] Care Team Providers Care Pension Administrator Name Role Phone CATHY CHE Laminating Machine Tender CHRISTOPHE SEVILLA Primary Care Provider [phone] Assessment No assessment recorded. Plan of Treatment Reminders Order Date Submit Date Provider Last Modified By Organization Details Last Modified Time Details Appointments OV EST 15 2024 11:30A M Cathy Che NP Not available Not available Not available Lab None recorded. Referral None recorded. Procedures None recorded. Surgeries None recorded. Imaging None recorded. Medication Orders Miralax 17 gram/dose oral powder 2024 025 [id number], [address] [place], [address], 03/20/2024 13:49:43 Reglan 5 mg tablet 2024 025 [facility], [address] [place], [address], 03/20/2024 13:49:43 ondansetr on 4 mg disintegr ating tablet 2024 025 [facility], [address] [place], [address], 03/20/2024 13:49:44 Zofran 4 mg tablet 2023 024 [facility], [address] [place], [address], 05/10/2023 15:34:54 Reglan 5 mg tablet 2023 025 [facility] [address] [place], [address], 03/20/2024 13:24:29 Zofran 4 mg tablet 2022 023 [facility], [address] [place], [address], 09/07/2022 11:16:11 Reglan 5 mg tablet 2022 023 [facility] [address] [place], [address], 03/20/2024 13:24:26 Zofran 4 mg tablet 2022 023 [facility] [address] [place], [address], 03/09/2022 15:10:22 Reglan 5 mg tablet 2022 023 [facility] [address] [place], [address], 03/20/2024 13:24:26 Patient TargetsNo targets recorded. Patient InstructionsNo instructions recorded. Reason for Referral None Reported. Problems Name Problem SNOMED Code Status Onset Date Resolution Date Notes Provider Name and Address Organization Details Recorded Time Depressive disorder 93175939 Active 2022 Armida Perkins null, [place] [facility] & [place] 3 14:11:38 Hypertensive disorder 30114024 Active 2022 Armida Perkins null, [place] [facility] [place] & [place] 3 14:11:43 Chronic back pain 280220388 Active 2022 Armida Perkins null, [place] [facility] & [place] 3 14:11:51 Restless legs 46507620 Active 2022 Armida Perkins null, [place] [facility] & [place] 3 14:11:58 Lumbar spondylosis 129378224 Active 2022 Armida alberts, [place] - [facility] - [place] & [place] 3 14:12:17 Gastroparesis syndrome 838428689 Active 2022 Armida Perkins null, [place] [facility] & [place] 3 14:12:25 Morbid obesity 783071402 Active 2022 Armidadunia alberts, [place] [facility] & [place] 3 14:12:36 Diarrhea 17156353 Active 2022 Cathy Che NP [address], [address], [place], [address], [place] - [facility] & [place] 3 15:04:47 Irritable bowel syndrome 79592259 Active 2024 Cathy Che NP [address], [address], [place], [address], [place] - [facility] - [place] & [place] 5 13:48:41 Problem Notes None recorded. Procedures Surgical History Date Name Laterality Status Provider Name and Address Organization Details Recorded Time 05/14/19 EMG/ Nerve Conduction Study completed Oliver Jacobsen M.D [address], [address], [place], [address], [place] [facility] [place] & [place] 05/25/2024 20:13:41 12/28/19 19 EGD/Endoscopy completed Armida Perkins [facility] - [facility] - [place] & [place] 03/09/2022 14:17:22 12/28/19 19 Colonoscopy completed Armida Perkins [facility] - [facility] - [place] & [place] 03/09/2022 14:17:32 section completed Armida Perkins [facility] - [facility] - [place] & [place] 03/09/2022 14:15:10 Carpal tunnel surgery completed Armida Perkins [facility] - [facility] - [place] & [place] 03/09/2022 14:16:15 Imaging Results None recorded. Procedure Notes None recorded. Medical Equipment None Reported. Allergies No known drug allergies Medications Name Sig Start Date Stop Date Status Note LastModified by Organization Details LastModified Time fluoxetine 40 mg capsule TAKE 2 CAPSULES BY MOUTH ONCE A DAY active Not Available Not Available No t Available cyclobenzap rine 10 mg tablet TAKE 1/2 TABLET BY MOUTH THREE TIMES DAILY NEEDED FOR MUSCLE SPASMS active Not Available Not Available No t Available Nicotrol NS 10 mg/mL nasal spray ADMINISTE R 1 SPRAY INTO EACH NOSTRIL 8 TIMES A DAY. DO NOT EXCEED 4 ML PER DAY active Not Available Not Available No t Available metformin 500 mg tablet TAKE 1 TABLET BY MOUTH TWICE DAILY TO IMPROVE DIABETES active Not Available Not Available No t Available nystatin 100,000 unit/mL oral suspension SWISH AND SWALLOW 1 TEASPOONF UL (5ML) 4 TIMES A DAY NEEDED FOR SORE MOUTH AND THROAT 03/20 completed Not Available Not Available Not Available ipratropium 0.5 mg-albutero l 3 mg (2.5 mg base)/3 mL nebulizatio n soln INHALE 1 VIAL VIA NEBULIZER 4 TIMES A DAY NEEDED active Not Available Not Available No t Available trazodone 50 mg tablet TAKE 1/2-1 ORAL TABLET AT BEDTIME NEEDED FOR SLEEP. active Not Available Not Available No t Available cetirizine 10 mg tablet TAKE 1 TABLET BY MOUTH EVERY DAY 03/20 completed Not Available Not Available Not Available azithromyci n 250 mg tablet TAKE 2 TABLETS BY MOUTH TODAY, THEN TAKE 1 TABLET DAILY FOR 4 DAYS DIRECTED 03/20 completed Not Available Not Available Not Available nystatin 100,000 unit/gram topical ointment APPLY 1 APPLICATI ON TO THE SKIN 3 TIMES A DAY 05/13 completed Not Available Not Available Not Available hydrocodone 5 mg-acetamin ophen 325 mg tablet TAKE 1 TABLET BY MOUTH EVERY 8 HOURS 05/13 completed Not Available Not Available Not Available ondansetron HCl 4 mg tablet TAKE 1 TABLET BY MOUTH EVERY 4 TO 6 HOURS NEEDED FOR 10 DAYS active Not Available Not Available No t Available prednisone 20 mg tablet TAKE 3 TABLETS BY MOUTH DAILY FOR 5 DAYS 05/13 completed Not Available Not Available Not Available acetaminoph en 300 mg-codeine 30 mg tablet TAKE 1 TABLET BY MOUTH EVERY 6 HOURS NEEDED FOR PAIN 03/20 completed Not Available Not Available Not Available tramadol 50 mg tablet TAKE 2 TABLET BY MOUTH TWICE DAILY NEEDED FOR SEVERE PAIN active Not Available Not Available No t Available famotidine 20 mg tablet TAKE 1 TABLET BY MOUTH TWICE A DAY active Not Available Not Available No t Available metoclopram sarah 5 mg tablet TAKE 1 TABLET BY MOUTH THREE TIMES DAILY BEFORE MEALS FOR 30 DAYS active Not Available Not Available No t Available gabapentin 800 mg tablet TAKE 1 TABLET BY MOUTH FOUR TIMES A DAY active Not Available Not Available No t Available benzonatate 100 mg capsule TAKE 1 CAPSULE ORAL ROUTE EVERY 8 HOURS NEEDED active Not Available Not Available No t Available neomycin-po lymyxin-dex ameth 3.5 mg/mL-10,00 0 unit/mL-0.1 % eye drops INSTILL 1 DROP IN BOTH EYES 3 TIMES DAILY 03/09 completed Not Available Not Available Not Available dexamethaso ne 4 mg tablet TAKE 1 TABLET BY MOUTH TWICE A DAY 05/13 completed Not Available Not Available Not Available nicotine 21 mg/24 hr daily transdermal patch APPLY 1 PATCH TRANSDERM ALLY EVERY 24 HOURS active Not Available Not Available No t Available folic acid 1 mg tablet TAKE 1 TABLET BY MOUTH EVERY DAY active Not Available Not Available No t Available azelastine 137 mcg (0.1 %) nasal spray SPRAY 2 SPRAYS INTO EACH NOSTRIL AT BEDTIME active Not Available Not Available No t Available lisinopril 10 mg-hydrochl orothiazide 12.5 mg tablet TAKE 1 TABLET BY MOUTH EVERY DAY TO IMPROVE BLOOD PRESSURE active Not Available Not Available No t Available levofloxaci n 500 mg tablet TAKE 1 TABLET BY MOUTH ONCE DAILY FOR 7 DAYS FOR INFECTION 03/20 completed Not Available Not Available Not Available methylpredn isolone 4 mg tablets in a dose pack TAKE DIRECTED ON PACKAGE 09/07 completed Not Available Not Available Not Available ondansetron 4 mg disintegrat ing tablet PLACE 1 TABLET ON THE TONGUE EVERY 4-6 HOURS NEEDED active Not Available Not Available No t Available fluoxetine 20 mg capsule TAKE 3 CAPSULES BY MOUTH EVERY DAY active Not Available Not Available No t Available fluticasone propionate 50 mcg/actuati on nasal spray,suspe nsion INSTILL 2 SPRAYS INTO EACH NOSTRIL EVERY DAY active Not Available Not Available No t Available metoclopram sarah 10 mg tablet TAKE 1 TABLET BY MOUTH 3 TIMES A DAY BEFORE MEALS 03/20 completed Not Available Not Available Not Available amoxicillin 875 mg-potassiu m clavulanate 125 mg tablet TAKE 1 TABLET BY MOUTH TWICE DAILY WITH FOOD FOR 1 WEEK FOR INFECTION 05/13 completed Not Available Not Available Not Available Ventolin HFA 90 mcg/actuati on aerosol inhaler INHALE 2 PUFFS BY MOUTH FOUR TIMES A DAY NEEDED FOR SHORTNESS OF BREATH OR WHEEZING FOR 90 DAYS active Not Available Not Available No t Available buspirone 15 mg tablet TAKE 1 TABLET BY MOUTH IN THE MORNING AND 2 TABLETS BY MOUTH IN THE EVENING. active Not Available Not Available No t Available hydroxyzine pamoate 25 mg capsule TAKE 1 CAPSULE BY MOUTH THREE TIMES A DAY NEEDED FOR ANXIETY active Not Available Not Available No t Available Spiriva with HandiHaler 18 mcg and inhalation capsules PUNCTURE 1 CAPSULE USING THE DEVICE AND INHALE BY MOUTH INTO THE LUNGS ONCE DAILY active Not Available Not Available No t Available Vitamin D3 50 mcg (2,000 unit) tablet TAKE 1 TABLET BY MOUTH EVERY DAY active Not Available Not Available No t Available Dulera 200 mcg-5 mcg/actuati on HFA aerosol inhaler INHALE 2 PUFFS INTO THE LUNGS TWICE A DAY active Not Available Not Available No t Available Dulera 100 mcg-5 mcg/actuati on HFA aerosol inhaler INHALE 2 PUFFS TWICE A DAY 03/20 completed Not Available Not Available Not Available SmoothLax 17 gram/dose oral powder MIX AND DRINK 17 GRAMS BY MOUTH EVERY DAY DIRECTED active Not Available Not Available No t Available Rexulti 1 mg tablet TAKE 1 TABLET BY MOUTH EVERY DAY 05/13 completed Not Available Not Available Not Available Rexulti 0.5 mg tablet TAKE 1 TABLET BY MOUTH EVERY DAY 05/13 completed Not Available Not Available Not Available Rexulti 2 mg tablet TAKE 1 TABLET BY MOUTH EVERY DAY active Not Available Not Available No t Available naloxone 4 mg/actuatio n nasal spray PLEASE SEE ATTACHED FOR DETAILED DIRECTION S active Not Available Not Available No t Available Vraylar 3 mg capsule TAKE 1 CAPSULE BY MOUTH EVERY DAY 03/20 completed Not Available Not Available Not Available Kloxxado 8 mg/actuatio n nasal spray PLEASE SEE ATTACHED FOR DETAILED DIRECTION S active Not Available Not Available No t Available Ozempic 0.25 mg or 0.5 mg (2 mg/3 mL) subcutaneou s pen injector INJECT 0.5MG UNDER THE SKIN ONCE WEEKLY 05/09 completed Not Available Not Available Not Available Vitals Date Recorded Body height Body mass index (BMI) Body weight Body temperature Oxygen saturation Oxygen saturation in Arterial blood by Pulse oximetry Heart rate Provider Name and Address Organization Details Last Updated DateTime 3 172.72 cm 51.4 kg/m2 880935. 22 g 97.6 [degF] 96 % 96 % 85 /min Armida BROWN [facility] & [place] 3 14:40:11 Date Recorded Body height Body mass index (BMI) Body weight Body temperature Oxygen saturation Oxygen saturation in Arterial blood by Pulse oximetry Heart rate Provider Name and Address Organization Details Last Updated DateTime 5 172.72 cm 49.1 kg/m2 521716. 34 g 98.3 [degF] 98 % 98 % 60 /min [facility] [place] 5 13:22:54 Date Recorded Body height Body mass index (BMI) Body weight Body temperature Oxygen saturation Oxygen saturation in Arterial blood by Pulse oximetry Heart rate Provider Name and Address Organization Details Last Updated DateTime 4 172.72 cm 48.7 kg/m2 243534. 56 g 97 [degF] 95 % 95 % 74 /min Armida BROWN [facility] & [place] 4 14:37:49 Date Recorded Body height Body temperature Oxygen saturation Oxygen saturation in Arterial blood by Pulse oximetry Heart rate Provider Name and Address Organization Details Last Updated DateTime 5 172.72 cm 97.8 [degF] 98 % 98 % 67 /min Nallely Arevalo DEDE Shea [facility] & [place] 5 11:16:57 Date Recorded Body height Body mass index (BMI) Body weight Oxygen saturation Oxygen saturation in Arterial blood by Pulse oximetry Body temperature Heart rate Provider Name and Address Organization Details Last Updated DateTime 3 172.72 cm 50.9 kg/m2 751994. 44 g 96 % 96 % 97.8 [degF] 83 /min Armida BROWN [facility] & [place] 3 10:48:36 Social History None recorded. Functional Status Question Answer Note LastModified by Organizat ion Details LastModified Time Do you use any illicit or recreational drugs? No [email or web address] Information not available 03/09/2022 What is your level of alcohol consumption? None [email or web address] Information not available 03/09/2022 Mental Status None recorded. Family History Relationship Description Onset Age of this Age Resolved Age Notes LastModified by Organization Details LastModified Time Mother Kidney disease [email or web address] Not available 03/09 14:13:08 Mother Chronic mental disorder [email or web address] Not available 03/09 14:13:24 Mother Diabetes mellitus [email or web address] Not available 03/09 14:13:31 Mother Parkinson's disease [email or web address] Not available 03/09 14:13:53 Sister Seizure Not availabl e 03/09/2022 14:13:44 Sister Hypertensive disorder [email or web address] Not available 03/09 14:14:09 Sister Chronic mental disorder [email or web address] Not available 03/09 14:14:31 Medical History Condition Response Depression Y Hypertension Y Gynecological HistoryNo gynecological history recorded. Obstetrics History GPAL:G 0 P 0 0 0 0 Past Encounters Encounter ID Performer Location Encounter Start Date Encounter Closed Date Diagnosis/Indication Diagnosis SNOMED-CT Code Diagnosis ICD10 Code Diagnosis Note [id number] Cathy Che NP [facility] [address] [address] 03/09/2022 13:47:19 03/09/2022 15:23:56 Gastroparesis syndrome 366994020 K31.84 Episodes of nausea and vomiting over the past 6 days after eating lettuce. Symptoms had been relatively well controlled until this time. Symptoms improved in the past with use of Zofran and Reglan prn. Will send Rx today. I have recommende d gastropare sis diet as well as weight loss. Diarrhea 21954423 R19.7 6 day hx of diarrhea, averaging 3-4 per day. I have recommende d stool studies to further evaluate however patient declines at this time as she has experience d this in the past with gastropare sis flare. Morbid obesity 747995893 E66.01 I have recommende d strict low fat diet with avoidance of soda, currently averages a 6 pack per day. She did voice understand ing. [id number] Cathy Che NP [facility] [address] [address] 09/07/2022 10:26:19 09/07/2022 11:58:37 Gastroparesis syndrome 632191302 K31.84 Frequent uncontroll ed symptoms at this time. Use of Reglan and Zofran improves symptoms, she is requesting refills today. I have again recommende d a strict gastropare sis diet and eating small meals with avoidance of food triggers. She was recently prescribed Ozempic for weight loss and diabetes which could be contributi ng to increased symptoms. Recommend strict glycemic control. Will refer to Community Services Officer for meal planning. I have discussed follow up with [facility] in [place] however patient would like to hold off at this time. Morbid obesity 471396007 E66.01 I have again recommende d strict low fat diet with avoidance of soda and increased exercise for weight loss. She continues to average a 6 pack of soda per day which I have cautioned her against. Discussed referral for Bariatric surgery however patient would like to hold off at this time as she was recently prescribed Ozempic. [id number] Cathy Che NP [facility] [address] [place] [address] 05/10/2023 14:21:15 05/11/2023 08:50:21 Gastroparesis syndrome 773700908 K31.84 Continued symptoms improved with use of Zofran and Reglan PRN. Will send refills today. I have again recommende d a strict gastropare sis diet and eating small meals with avoidance of food triggers. Recommend strict glycemic control. I have again discussed referral to Community Services Officer for meal planning, patient plans to call and schedule appointmen t. Morbid obesity 475245698 E66.01 I have again recommende d strict low fat diet with continued decreased soda and increased water as well as exercise for weight loss. [id number] Cathy Che NP [facility] [address] [place] [address] 03/20/2024 12:51:21 03/20/2024 13:51:24 Gastroparesis syndrome 755220008 K31.84 Occasional uncontroll ed symptoms despite dietary modificati on. Symptoms do improve with use of Reglan p.r.n. as well as Zofran. Recommend continue gastropare sis diet. We will send refills today. Recommend strict glycemic control. Morbid obesity 401905126 E66.01 I have again recommende d strict low fat diet with decreased soda and increased water as well as exercise for weight loss. Previously failed treatment with Ozempic due to side effects. Irritable bowel syndrome 51640886 K58.9 currently alternatin g 4-5 days of constipati on with episodes of diarrhea to follow up. I have recommende d increased water intake as well as starting MiraLax 17 g p.o. daily. May increase MiraLax b.i.d. dosing if symptoms have not improved after 1 week. [id number] Oliver Jacobsen M.D [facility] [address],[facility] [address] [place] [address] 05/13/2024 10:47:46 05/13/2024 11:45:55 Bilateral carpal tunnel syndrome 3308869664 2304414 G56.03 Paresthesia 96968457 R20 .2 Neuropathy 919820289 M79 .2 Health Concerns Section Related Observation LastModified by Organization Detai ls LastModified Time None Recorded Concern Status LastModified by Organization Details LastModified Time None Recorded Advance Directives Directive None Recorded Payers Insurance Date Sequence Insurance Name Policy Number Policy Dai Covered Member ID Dai Member ID Guarantor Name 04/01/2024 1 [employer] Gracie Cordova [id number] Gracie Cordova 05/27/2024 1 [employer] [place]MEDICAID [place]AC[place] - HMO) Gracie Cordova [id number] Gracie Cordova 03/20/2024 1 JEANNIE-DED[place]: [place] - [place]ICAID (HMO) [id number] Gracie Cordova [id number] Gracie Cordova Notes Date Note Type Note Provider Name and Address Organization Details Recorded Time 03/09/2022 text/html Patient returns to clinic today after being lost to follow up. She ate lettuce on monday and since that time has been experiencing nausea, vomiting, and diarrhea. She tells me that diarrhea is normal for her during gastroparesis flare ups. She tries to follow a gastroparesis diet. Use of Zofran and Reglan have improved her symptoms in the past and she is requesting refills today. States that she only takes Reglan PRN. She has gained significant weight since she was previously seen in clinic, currnelty averages a 6 pack of soda per day. Cathy Che NP [address] [facility], [address], [place], [address], [facility] & [place] 03/09/2022 15:23:20 09/07/2022 text/html Patient returns to clinic today for follow up on gastroparesis. She has been feeling bad recently with uncontrolled symptoms. She continues Reglan as well as Zofran for treatment. She tries to follow a gastroparesis diet and frequently doesn't eat due to symptoms. She has been unsuccessful with weight loss since she was last seen in clinic. She continues to drink 6 sodas per day. She was recently prescribed Ozempic for weight loss as well as newly diagnosed diabetes. She is considering weight loss surgery however is afraid of possible complications. Cathy Che NP [address] [facility], [address], [place], [address], [facility] & [place] 09/07/2022 11:55:56 05/10/2023 text/html Patient returns to clinic today for follow up on gastroparesis. She continues low-dose Reglan and Zofran p.r.n. for treatment. Requesting refills today. She continues to experience frequent episodes of nausea however improved with use of medication. She has not followed up with dietitian however plans to schedule appointment. She is no longer taking Ozempic due ot side effects. She is interested in continued weight loss. She has cut back on sodas and has tried to increase water intake. Weight is down 15 pounds since she was last seen in clinic. Cathy Che NP [address] [facility], [address], [place], [address], [facility] & [place] 05/10/2023 15:38:16 03/20/2024 text/html Patient returns to clinic today for follow up on gastroparesis. she continues to experience episodes of nausea that comes and goes. She continues low dose Reglan p.r.n. for severe episodes. Uses Zofran also improves her symptoms. Requesting refills today. She tries to eat smaller portion sizes. she does continue to drink regular soda averaging 6 per day. She is interested in weight loss. Previously failed treatment with Ozempic d/t side effects. She has tried to increase water intake. She does experience constipation for several days with diarrhea to follow. Cathy Che NP [address] [place] [address], [address], [place], [address], [facility] & [place] 03/21/2024 13:20:37 OBGyn Episode No OBEpisode recorded.
--- OUTSIDE RECORDS SUMMARY | 2024-09-04 09:56 | XMS_ITS | Encounter Summary ---
Author Organization [employer] ([place], [place], [place], [place]) Address [address] [place] [address] Care Team Providers Care Ceramic Tile Mechanic Name Role Phone Rosalie Alva PA-C Primary Care Provider [phone] Rosalie Alva PA-C Unavailable [phone] Robyn Mario MD Unavailable [phone] Reason for Referral * Consultation (Routine) - Closed Specialty Diagnoses / Procedures Referred By Bennie beltrán Referred To Contact Neurology Diagnoses Abnormal MRI, cervical spine Paresthesia of upper and lower extremity Numbness and tingling History of carpal tunnel release New pt-BUE/BLE Paresthesia, Abnormal MRI of Cervical Spine, and a Hx of CTS Rosalie Alva PA-C [address] [place] [address] Phone: tel: fax: [facility] Neurology - [place] [address] [place] [address] Phone: tel: fax: Referral ID Status Reason Start Date Expiration Date Visits Re quested Visits Authorized [id number] Closed 06/18/2024 06/18/2025 1 1 Encounter Details Date Type Department Care Team (Late st Contact Info) Description 06/18/2024 Outside Orders [facility] Neurology - [place] [address] [place] [address] Rosalie Alva PA-C [address] [place] [address] Abnormal MRI, cervical spine (Primary Dx); Paresthesia of upper and lower extremity; Numbness and tingling; History of carpal tunnel release Social History Tobacco Use Types Packs/Day Years Used Date Smoking Tobacco: Never Assessed Comments Unknown Sex and Gender Information Value Date Recorded Sex Assigned at Not on file Legal Sex Female 7:16 PM CDT Gender Identity Not on file Sexual Orientation Not on file documented as of this encounter Plan of Treatment Upcoming Encounters Date Type Department Care Team (Late st Contact Info) Description 11/25/2024 9:00 AM EDT Procedure Visit [facility] Neurology [facility] [address] [place] [address] Robyn Mario MD [address] [address] 11/25/2024 11:45 AM EDT Office Visit [facility] [address] [place] [address] Robyn Mario MD [address] [place] [address] [id number] Scheduled Referrals Name Type Priority Associated Diagnoses Order Schedule Ambulatory referral to Neurology Outpatient Referral Routine Abnormal MRI, cervical spine Paresthesia of upper and lower extremity Numbness and tingling History of carpal tunnel release Ordered: 06/18/2024 documented as of this encounter Visit Diagnoses Diagnosis Abnormal MRI, cervical spine- Primary Paresthesia of upper and lower extremity Numbness and tingling Disturbance of skin sensation History of carpal tunnel release documented in this encounter Care Teams Ceramic Tile Mechanic Relationship Specialty Start Date End Date Rosalie Avla PA-C [address] [place] [address] PCP - General Physician Professor Of Musicology - Certified 06/18/24 Rosalie Alva PA-C [facility] [address] [place] [address] Referring Physician Physician Professor Of Musicology - Certified 06/18/24 Robyn Mario MD [address] [address] Neurology 08/28/24 documented as of this encounter
--- OUTSIDE RECORDS SUMMARY | 2024-09-04 09:56 | XMS_ITS | Clinical Summary ---
Author Organization Healthcare Address [address] [place] [address] Care Team Providers Care Bottle Machine Operator Name Role Phone Zach Silva MD Primary Care Provider [phone] Allergies Active Allergy Reactions Criticality Noted Date Comments Codeine Unknown - Patient st ates they do not know rxn details Low 07/13/2011 Medications busPIRone (Buspar) 15 MG tablet Take 1 tablet (15 mg) by mouth 2 (two) times a day. 1 Active cetirizine (ZyrTEC) 10 MG tablet Take 1 tablet (10 mg) by mouth daily. 1 Active famotidine (Pepcid) 20 MG tablet Take by mouth 1 (one) time each day. 6 Active FLUoxetine (PROzac) 20 MG capsule Take 4 capsules (80 mg) by mouth daily. 1 Active fluticasone (Flonase) 50 MCG/ACT nasal spray Administer 2 sprays into each nostril as needed. 1 Active folic acid (Folvite) 1 MG tablet Take 1 tablet (1,000 mcg) by mouth daily. 1 Active metoclopramide (Reglan) 10 MG tablet Take 1 tablet (10 mg) by mouth as needed. 0 Active lisinopril-hydr oCHLOROthiazide 10-12.5 MG tablet Take 1 tablet by mouth daily. 6 Active hydrOXYzine pamoate (Vistaril) 25 MG capsule Take 1 capsule (25 mg) by mouth as needed. 0 Active Rexulti 0.5 MG tablet Take 1 tablet (0.5 mg) by mouth daily. 2 Active Ventolin HFA 108 (90 Base) MCG/ACT inhaler INHALE 2 PUFS FOUR TIMES A DAY NEEDED FOR SHORTNESS OF BREATH OR WHEEZING FOR 90 DAYS 3 Active Dulera 100-5 MCG/ACT inhaler Inhale 2 puffs 2 (two) times a day. 3 Active ondansetron (Zofran) 4 MG tablet Take 1 tablet (4 mg) by mouth every 12 hours as needed. 3 Active Azelastine HCl 137 MCG/SPRAY solution SPRAY 2 SPRAYS INTO EACH NOSTRIL AT BEDTIME 4 Active naloxone (Kloxxado) 8 mg/0.1 mL nasal sprayIndication s:High risk medication use 1. Give 1 spray in nostril for no/slow breathing or cannot wake after opioid use 2. Call 911 3. Repeat in other nostril if symptoms continue 1 each 4 Active traMADol (Ultram) 50 MG tabletIndicatio ns:Degenerative disc disease, lumbar Take 2 tablets (100 mg) by mouth 2 (two) times a day as needed for severe pain. 120 tablet 4 5 Active cyclobenzaprine (Flexeril) 10 MG tabletIndicatio ns:Degenerative disc disease, lumbar,Fibromya lgia Take 0.5 tablets (5 mg) by mouth 3 (three) times a day as needed for muscle spasms. 90 tablet 5 5 Active gabapentin (Neurontin) 800 MG tabletIndicatio ns:Degenerative disc disease, lumbar,Fibromya lgia Take 1 tablet by mouth 4 times a day. 120 tablet 5 5 Active Active Problems Problem Noted Date Diagnosed Date Functional urinary incontinence 09/23/2023 Stress incontinence (female) (male) 09/23/2023 Acute bronchiolitis, unspecified 09/01/2023 Dehydration 09/01/2023 Hypertensive urgency 09/01/2023 Other chest pain 09/01/2023 Pain in left knee 08/31/2023 Essential (primary) hypertension 08/14/2023 Other fatigue 08/14/2023 Type 2 diabetes mellitus without complications 0 08/14/2023 Regular astigmatism, unspecified eye 05/24/2023 Emphysema, unspecified 05/23/2023 Interstitial pulmonary disease, unspecified 0 10/2023 Other forms of dyspnea 05/23/2023 Solitary pulmonary nodule 05/23/2023 Mild persistent asthma, uncomplicated 05/23/2023 Ocular hypertension, bilateral 05/22/2023 Gastroparesis 05/10/2023 Other intervertebral disc degeneration, lumbar r egion 04/14/2023 Polyosteoarthritis, unspecified 04/14/2023 Chondromalacia patellae, left knee 10/18/2022 Complex tear of lateral meni scus, current injury, left knee, initial encounter 10/18/2022 Unilateral primary osteoarthritis, left knee 06/2022 Morbid obesity with body mass index (BMI) of 40. 0 or higher 06/30/2022 Low back pain 05/11/2018 Neck pain 09/22/2017 Fibromyalgia 10/06/2015 Encounters Date Type Department Care Team Description 06/13/2024 Refill [facility] Medicine Specialties [address] [place] [address] Norman Zavala MD Degenerative disc disease, lumbar; Fibromyalgia from Last 3 Months Immunizations Immunization Administration Dates Next Due Hep A, Adult 02/15/2018 Influenza, seasonal, injectable 12/28/2006 No [employer] COVID-19 Vaccine (Purple Cap) 12 + 12/03/2020 Tdap 02/15/2018 Family History Medical History Relation Name Comments Blood clots Father Cervical cancer Maternal Grandmother Diabetes Mother Fibromyalgia Mother Depression Other 1 Hypertension Other 2 Breast cancer Other 3 Relation Name Status Comments Father Maternal Grandmother Mother Other 1 Other 2 Other 3 Social History Tobacco Use Types Packs/Day Years Used Date Smoking Tobacco: Every Day Cigarettes 0.5 40.6 Started: 1984 Smokeless Tobacco: Never Tobacco Cessation:Ready to Q uit: Not Asked; Counseling Given: Not Answered Comments:Smokes 1 pack of cigarettes per day Alcohol Use Standard Drinks/Week Comments No 0 (1 standard drink = 0.6 oz pur e alcohol) PHQ-2 Answer Date Recorded Patient Health Questionnaire-2 Score 0 04/17/2024 PHQ-9 Answer Date Recorded Patient Health Questionnaire-9 Score 0 04/17/2024 PHQ-2A Answer Date Recorded Patient Health Questionnaire-2 Score 6 10/04/2022 Comments Unknown Sex and Gender Information Value Date Recorded Sex Assigned at Not on file Legal Sex Female 6:30 PM EDT Gender Identity Not on file Sexual Orientation Not on file Last Filed Vital Signs Vital Sign Reading Time Taken Comments Blood Pressure 115/74 04/17/2024 12:52 PM EST Pulse 74 04/17/2024 12:52 PM EST Temperature 36.8 C (98.2 F) 04/17/2024 12:52 PM EST Respiratory Rate 16 04/17/2024 12:52 PM EST Oxygen Saturation 93% 04/17/2024 12:52 PM EST Inhaled Oxygen Concentration - - Weight 147 kg (324 lb 1.2 oz) 04/17/2024 12:52 P M EST Height 160 cm (5' 3 ) 04/17/2024 12:52 PM EST Body Mass Index 57.41 04/17/2024 12:52 PM EST Plan of Treatment Upcoming Encounters Date Type Department Care Team (Late st Contact Info) Description 10/21/2024 1:30 PM EDT Office Visit [facility] [address] [place] [address] Benoit Sanon, HORSE AND WAGON DRIVER [address] [place] [address] Health Maintenance Due Date Last Done Comments [facility]-Diabetes: Hemoglobin A1C 1971 [facility]-/Child/Adol SDOH Screenings 1971 Diabetes: Dental Exam 05/02/1981 [facility]- SDOH Screenings 05/02/1989 [facility]-Adult SDOH Screenings 05/02/1989 [facility]-Hepatitis B Vaccines (1 of 3 - 19+ 3-dose series) 05/02/1990 [facility]-Pneumococcal Vaccine: 50+ Years (1 of 2 - PCV) 05/02/1990 CT Colonography 05/02/2016 Colonoscopy 05/02/2016 FIT-DNA 05/02/2016 FIT 05/02/2016 FOBT 05/02/2016 Sigmoidoscopy 05/02/2016 [facility]-Colorectal Cancer Screening 05/02/2016 [facility]-Breast Cancer Screening 05/02/2021 [facility]-Lung Cancer Screening 05/02/2021 [facility]-Zoster Vaccines (1 of 2) 05/02/2021 [id number] Vaccine (2 - season) 2023 12/03/2020 [facility]-Influenza Vaccine (#1) 2024 12/28/2006 [facility]-Depression Screening 04/17/2025 04/17/2024, 030 06/2024 [facility]-Pap Smear 07/01/2025 07/01/2022 [facility]-Cervical Cancer Screening 07/02/2027 [facility]-HPV/Cotest 07/02/2027 07/01/2022 [facility]-DTaP,Tdap,and Td Vaccines (2 - Td or Tdap) 02/16/2028 02/15/2018 [facility]-HIV Screening Completed 01/26/2016 [facility]-Hepatitis C Screening Completed 01/26/2016 [facility]-Hepatitis A Vaccines Aged Out 02/15/2018 No longer eligible based on patient's age to complete this topic [facility]-Obesity Intervention Completed 025, 10/18/2023, 04/14/2023, Additional history exists HPV Vaccines Aged Out No longer eligi ble based on patient's age to complete this topic [facility]-HIB Vaccines Aged Out No longer e ligible based on patient's age to complete this topic [facility]-IPV Vaccines Aged Out No longer e ligible based on patient's age to complete this topic [facility]-Rotavirus Vaccines Aged Out No lo nger eligible based on patient's age to complete this topic Procedures Procedure Name Priority Date/Time Associated Diagnosis Comments PAP TEST - CYTOLOGY Routine 07/01/2022 1 0:15 AM EDT Encounter for gynecological examination without abnormal finding HEPATITIS C ANTIBODY W/REFLEX TO HCV QUANT PCR Routine 01/26/2016 8:04 AM EST HIV 1/2 ANTIBODY/ANTIGEN SCREEN WITH REFLEX TO HIV I/II DIFFERENTIATION Routine 01/26/2016 8:04 AM EST from Last 3 Months or Most Recently Relevant to Health Maintenance Results * Pap Test (07/01/2022 10:15 AM EDT) Case Report Cytology Case: [id number] Authorizing Provider: Estefani Wills APRN, JETT Collected: 07/01/2022 1015 Ordering Location: [facility] Received: 07/01/2022 1026 Department Professor Of Political Science Clinic First Screen: Sulema Che Specimen: ThinPrep Pap Test, Liquid-Based Cervical/Vaginal, CERVICAL/VAGINAL 07/13/2022 10:41 AM EDT [facility] Interpretation NEGATIVE FOR INTRAEPITHELIAL LESION OR MALIGNANCY 07/13/2022 10:41 AM EDT [facility] at 1041 EDT Specimen Adequacy Satisfactory for evaluation; endocervical/ott sformation zone component present. Slide scanned and imaged by ThinPrep Imaging System with manual review of all selected carroll. 07/13/2022 10:41 AM EDT [facility] Cervical cytology is a screening test primarily for squamous cancers and precursors and has associated false negative and positive results. New technologies such as liquid based sampling may decrease but will not eliminate all false negative results. Regular screening and follow-up of unexplained clinical signs and symptoms are recommended to minimize false negative results. Please see the ASCCP website (www.asccp.org)fo r followup recommendations. If HPV testing was requested, correlation with the results is suggested (please call Microbiology at [phone] for results). 07/13/2022 10:41 AM EDT [facility] Menstrual Status Not Applicable 06/15 10:41 AM EDT [facility] Contraceptive History Not Applicable 07/13/2022 10:41 AM EDT [facility] Screening Type Routine Screen 2022 10:41 AM EDT [facility] High Risk? No 07/13/2022 10:41 AM EDT [facility] HPV Testing Requested? Request HPV Testing if ASCUS (Women 25 Years or Older) 07/13/2022 10:41 AM EDT [facility] Previous Cancer History No 07/13/2022 10:41 AM EDT [facility] Clinical Information Z01.419 - Encounter for gynecological examination without abnormal finding [ICD-10-CM] 07/13/2022 10:41 AM EDT [facility] Swab Vaginal and cervical cytologic material / Unknown Non-blood Collection / Unknown 07/01/2022 10:15 AM EDT 07/01/2022 10:26 AM EDT Estefani Wills APRN, DNP LAB CYTOLOGY ORDERABLES Final Result [facility] [address] [place] [address] * HIV 1 & 2 Antibody/Antigen Screen (01/26/2016 8:04 AM EST) HIV 1 Result NONREACTIVE Screening for HIV 1 and 2 antibodies is NONREACTIVE. No confirmatory testing is required. SUNQUEST 01/26/2016 8:04 AM EST 01/26/2016 8:12 AM EST Historical Provider LAB BLOOD ORDERABLES Kerri l Result Performing Organization Address City/[facility] Co de Phone Number SUNQUEST * Hepatitis C Antibody (01/26/2016 8:04 AM EST) Hepatitis C Antibody NEGATIVE Reference Range: Negative SUNQUEST 01/26/2016 8:04 AM EST 01/26/2016 8:12 AM EST Historical Provider LAB BLOOD ORDERABLES Kerri l Result Performing Organization Address City/[facility] Co de Phone Number SUNQUEST from Last 3 Months or Most Recently Relevant to Health Maintenance Insurance Care Teams Bottle Machine Operator Relationship Specialty Start Date End Date Zach Silva MD [address] [place] [address] [facility] - General 06/26/20
--- OUTSIDE RECORDS SUMMARY | 2024-09-04 09:56 | XMS_ITS | Encounter Summary ---
Author Organization [employer] ([place], [place], [place], [place]) Address [address] [place] [address] Care Team Providers Care Welder Machine Operator Name Role Phone Rosalie Alva PA-C Primary Care Provider [phone] Rosalie Alva PA-C Unavailable [phone] Robyn Mario MD Unavailable [phone] Encounter Details Date Type Department Care Team (Latest Contact Info) Description 08/28/2024 Travel Social History Tobacco Use Types Packs/Day Years Used Date Smoking Tobacco: Some Days Cigarettes Smokeless Tobacco: Former Comments Unknown Sex and Gender Information Value Date Recorded Sex Assigned at Not on file Legal Sex Female 7:16 PM CDT Gender Identity Not on file Sexual Orientation Not on file documented as of this encounter Plan of Treatment Upcoming Encounters Date Type Department Care Team (Late st Contact Info) Description 11/25/2024 9:00 AM EDT Procedure Visit [place] [address] [place] [address] Robyn Mario MD [address] [place] [address] [address] [place] [address] 11/25/2024 11:45 AM EDT Office Visit [facility] [address] [place] [address] Robyn Mario MD [address] [facility] [address] [place] [id number] documented as of this encounter Visit Diagnoses Not on filedocumented in this encounter Care Teams Welder Machine Operator Relationship Specialty Start Date End Date Rosalie Alva PA-C [facility] [place] [place] [address] PCP - General Physician Utilization Management Nurse - Certified 06/18/24 Rosalie Alva PA-C [address] [place] [address] Referring Physician Physician Utilization Management Nurse - Certified 06/18/24 Robyn Mario MD [address] [facility] [address] [place] [address] Neurology 08/28/24 documented as of this encounter
--- OUTSIDE RECORDS SUMMARY | 2024-09-04 09:56 | XMS_ITS | Clinical Summary ---
Author Organization [facility] Address [address] [place] [address] Care Team Providers Care Cage Tender Name Role Phone Zach Silva MD Primary Care Provider [phone] Allergies No known active allergies Medications lisinopril (PRINIVIL,ZESTRI L) 10 MG tablet Take by mouth. 12/06/2013 Active OXcarbazepine (TRILEPTAL) 300 MG tablet Take by mouth. 12/06/2013 Active promethazine (PHENERGAN) 25 MG tablet Take by mouth. 12/06/2013 Active meloxicam (MOBIC) 15 MG tablet Take by mouth. 12/06/2013 Active FLUoxetine (PROzac) 40 MG capsule Take by mouth. 12/06/2013 Active dicyclomine (BENTYL) 20 MG tablet Take by mouth. 12/06/2013 Active Social History Tobacco Use Types Packs/Day Years Used Date Smoking Tobacco: Every Day Abuse Screen Answer Date Recorded Unsafe at Home or Work/School Not on file Feels Threatened by Someone? Not on file 10/2022 Does Anyone Keep You from Co ntacting Others or Doint Things Outside the Home? Not on file 11/21/2022 Physical Sign of Abuse Present Not on file 1 Housing Stability Answer Date Recorded Current Living Arrangements Not on file 10/2022 Potentially Unsafe Housing Conditions Not on anurag e 11/21/2022 Family and Community Support Answer Pavan e Recorded Help with Day-to-Day Activities Not on file 11/21/2022 Lonely or Isolated Not on file 11/21/2022 Employment Answer Date Recorded Do you want help finding or keeping work or a van b? Not on file 11/21/2022 Disabilities Answer Date Recorded Concentrating, Remembering, or Making Decisions Difficulty Not on file 11/21/2022 Doing Errands Independently Difficulty Not on fi le 11/21/2022 Education Answer Date Recorded Help with school or training? Not on file Preferred Language Not on file 11/21/2022 Comments Unknown Sex and Gender Information Value Date Recorded Sex Assigned at Not on file Legal Sex Female 12:37 PM EDT Gender Identity Not on file Sexual Orientation Not on file Last Filed Vital Signs Vital Sign Reading Time Taken Comments Blood Pressure 118/60 12/06/2013 11:34 AM EDT Pulse 55 12/06/2013 11:34 AM EDT Temperature - - Respiratory Rate 16 12/06/2013 11:34 AM EDT Oxygen Saturation - - Inhaled Oxygen Concentration - - Weight 119 kg (261 lb 15.9 oz) 12/06/2013 11:34 AM EDT Height 167.6 cm (5' 6 ) 12/06/2013 11:34 AM EDT Body Mass Index 42.29 12/06/2013 11:34 AM EDT Plan of Treatment Health Maintenance Due Date Last Done Comments Annual Gynecologic Pelvic and Breast Exam 1971 TDAP/TD VACCINES (1 - Tdap) 05/02/1990 MAMMOGRAM 2011 COLOGUARD 05/02/2016 COLON CANCER SCREENING 5 YEAR SIGMOIDOSCOPY 05/02/2016 COLONOSCOPY 05/02/2016 COLORECTAL CANCER SCREENING 05/02/2016 CT COLONOGRAPHY 05/02/2016 FECAL OCCULT BLOOD TEST 05/02/2016 FIT Testing (1 year) 05/02/2016 Pneumococcal Vaccine 50+ (1 of 1 - PCV) 05/02/2021 ZOSTER VACCINE (1 of 2) 05/02/2021 ANNUAL PHYSICAL 10/07/2022 HEPATITIS C SCREENING 10/07/2022 COVID-19 Vaccine (1 - season) 2023 INFLUENZA VACCINE 11/13/2024 Care Teams Cage Tender Relationship Specialty Start Date End Date Zach Silva MD [address] [place] [address] PCP - General Family Medicine 11/23/15
--- OUTSIDE RECORDS SUMMARY | 2024-09-04 09:56 | XMS_ITS | Encounter Summary ---
Author Organization Healthcare Address [address] [place] [address] Care Team Providers Care Social Worker Health Services Name Role Phone Zach Silva MD Primary Care Provider [phone] Reason for Visit * Reason Comments Med Refill Encounter Details Date Type Department Care Team (Late st Contact Info) Description 11/14/2023 Refill [facility] [address], [address] [place] [address] Norman Zavala MD [address] [place] [address] Degenerative disc disease, lumbar Social History Tobacco Use Types Packs/Day Years Used Date Smoking Tobacco: Every Day Cigarettes 0.5 40.6 Started: 1984 Smokeless Tobacco: Never Comments:Smokes 1 pack of ci garettes per day Alcohol Use Standard Drinks/Week Comments No 0 (1 standard drink = 0.6 oz pur e alcohol) PHQ-2 Answer Date Recorded Patient Health Questionnaire-2 Score 1 10/18/2023 PHQ-9 Answer Date Recorded Patient Health Questionnaire-9 Score 21 04/14/2023 PHQ-2A Answer Date Recorded Patient Health Questionnaire-2 Score 6 10/04/2022 Comments Unknown Sex and Gender Information Value Date Recorded Sex Assigned at Not on file Legal Sex Female 6:30 PM EDT Gender Identity Not on file Sexual Orientation Not on file documented as of this encounter Miscellaneous Notes * Telephone Encounter - Anabella Mcbride MD - 11/17/2023 4:18 PM EDT Since refills were deleted by the pharmacy by error we signed the new prescription for 30 days for tramadol. * Telephone Encounter - Zach Figueroa PharmD - 11/15/2023 3:57 PM EDT Images from the original note were not included. * Telephone Encounter - Marcia Cabrales RPh - 11/14/2023 3:06 PM EDT Refill request does not meet protocol. Sending to clinic for review. Additional info: Controlled substance. tramadol documented in this encounter Plan of Treatment Upcoming Encounters Date Type Department Care Team (Late st Contact Info) Description 10/21/2024 1:30 PM EDT Office Visit [facility] Medicine Specialties [address] [place] [address] Benoit Sanon, NOEMI [address] [place] [address] documented as of this encounter Visit Diagnoses Diagnosis Degenerative disc disease, lumbar documented in this encounter Additional Health Concerns Assessment Noted Time PHQ-9 Depression Total Score: 21 024 1:25 PM EST A fall risk assessment has been complete d for the patient 10/18/2023 2:29 PM EDT A Body Mass Index follow-up plan has been documented for the patient 10/18/2023 3:01 PM EDT documented as of this encounter Care Teams Social Worker Health Services Relationship Specialty Start Date End Date Zach Silva MD [address] [place] [address] PCP - General 06/26/20 documented as of this encounter
--- NOTE | 2024-09-04 10:30 | CT_ITS ---
FINAL REPORT CLINICAL HISTORY: lung cancer screening current smoker 1/2 ppd x 40 years COMPARISON: High-resolution CT 08/16/[address] low-dose 07/20/2022 FINDINGS: CT CHEST LOW DOSE SCREENING HISTORY: Screening exam for lung cancer. DOSE: CTDI vol: 2.90 mGy, DLP: 100.55 mGy*cm TECHNIQUE: Axial CT without IV contrast administration using low dose protocol. This study was performed with techniques to keep radiation doses as low as reasonably achievable, (ALARA). Individualized dose reduction techniques using automated exposure control or adjustment of mA and/or kV according to the patient's size were employed. No acute lung disease is present. No pulmonary lesions are seen suspicious for neoplasm. No pleural or pericardial effusion is seen. No adenopathy or mass lesion is present. IMPRESSION: No evidence of lung cancer LUNG RADS CATEGORY 1 RECOMMENDATION: 12 month LDCT follow up Reviewed, Interpreted and Dictated by Adela [place] MD Transcribed by Gardenia Lewis Authenticated and [facility]
== END 2024-09-04 23:59 | disposition home or self-care (01) ==
LOC: RAD 09:53
PROVIDERS: PCP Family Medicine; Visit Provider Internal Medicine Pulmonary Disease
DX: Z12.2 Encounter for screening for malignant neoplasm of respiratory organs (principal); F17.210 Nicotine dependence, cigarettes, uncomplicated
CPT/HCPCS: 71271